=== PATIENT | female | born 1940 | race Asian ===

== ENCOUNTER 2019-04-06 11:10 | Inpatient (IN) | payer OTHER, MEDICAID ==
[~2019-04-06] VITALS: Ht 157.5 cm; Wt 52.2 kg
[~2019-04-06 11:10] MED LIST: ALEN70TA3 PO; AMLO2.5T2 PO; ASA81 PO; CALC-1036 PO; CARB-61 PO; CLOP75TA2 PO; DOCU-144 PO; DONE10TA44 PO; FERR-57 PO; LEVO100T9 PO; LIP10 PO; LORA10TA7 PO; MULT PO; TEMA15CA5 PO
[2019-04-06 11:19] VITALS: BP_SYST 163
--- NOTE | 2019-04-06 11:27 | NUR ---
Patient to ER bed 05 to gown for evaluation. Side rails up.
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
--- NOTE | 2019-04-06 11:40 | NUR ---
ER Dr. Palacios at bedside examining patient.
--- NOTE | 2019-04-06 13:00 | NUR ---
Patient sitting up in bed eating, no signs or symptoms of acute distress noted.
[2019-04-06] MEDS ORDERED: LORazepam 2 MG/ML VIAL IM ONE (13:45)
[2019-04-06 14:33] LABS: BASOPHILS % (AUTO) 0.8 % (0.0-2.0); EOSINOPHILS # (AUTO) 0.1 K/uL (0.0-0.4); EOSINOPHILS % (AUTO) 2.2 % (0.0-4.0); HEMATOCRIT 31.7 % (36-48); HEMOGLOBIN 10.6 g/dL (12.0-16.0); LYMPHOCYTES # (AUTO) 1.1 K/uL (1.0-5.5); LYMPHOCYTES % (AUTO) 27.4 % (20.5-51.5); MEAN CORPUSCULAR HEMOGLOBIN 31 pg (27-31); MEAN CORPUSCULAR HGB CONC 34 % (32-36); MEAN CORPUSCULAR VOLUME 92 fL (79.0-98.0); MONOCYTES # (AUTO) 0.2 K/uL (0.0-1.0); MONOCYTES % (AUTO) 5.6 % (1.7-9.3); NEUTROPHILS # (AUTO) 2.6 K/uL (1.8-7.7); PLATELET COUNT (AUTO) 138 K/uL (130-430); RED BLOOD CELL COUNT(AUTO) 3.44 MIL/uL (4.2-6.2); RED CELL DISTRIBUTION WIDTH 13.9 % (9.0-15.0)
[2019-04-06 14:49] LABS: ANION GAP 11 (5-15); CALCIUM 8.5 mg/dL (8.4-11.0); CHLORIDE 105 mmol/L (98-107); CREATININE 2.02 mg/dL (0.55-1.30); GLUCOSE 98 mg/dL (70-99); POTASSIUM 4.2 mmol/L (3.5-5.1); SODIUM SERUM 139 mmol/L (136-145); UREA NITROGEN, BLOOD 34 mg/dL (8-21)
[2019-04-06 14:56] LABS: ALANINE AMINOTRANSFERASE 19 U/L (12-78); ASPARTATE AMINOTRANSFERASE 35 U/L (10-37); TOTAL BILIRUBIN 0.4 mg/dL (0.0-1.0)
--- NOTE | 2019-04-06 15:30 | NUR ---
Patient cleaned, turned, and repositioned. Patient denies any pain. No signs or symptoms of acute distress noted.
--- NOTE | 2019-04-06 15:59 | NUR ---
Patient will be admitted to care of Dr. Case. Will be admitted to telemetry unit. Belongings list completed. Complete and up to date summary report printed. SBAR report to be given at bedside with opportunity for questions.
--- NOTE | 2019-04-06 16:00 | NUR ---
Unable to obtain medication reconciliation due to patient condition.
[2019-04-06] MEDS ORDERED: HALOPERIDOL LACTATE 5 MG/ML VIAL IM PRN (17:15)
[2019-04-06] MEDS ORDERED: ASPIRIN 81 MG TABLET(ECOTRIN) PO ONE (17:15)
[2019-04-06] MEDS ORDERED: ENOXAPARIN SODIUM 30 MG/0.3 ML SYRINGE SUBCUT ONE (17:15)
[2019-04-06] MEDS ORDERED: ATORVASTATIN 10 MG TABLET PO ONE (17:30)
[2019-04-06] MEDS ORDERED: CLOPIDOGREL BISULFATE 75 MG TABLET PO ONE (17:30)
[2019-04-06] MEDS ORDERED: LORATADINE 10 MG TABLET PO ONE (17:30)
[2019-04-06] MEDS ORDERED: CALCIUM CARBONATE/VITAMIN D3 1 TAB TABLET PO ONE (17:30)
[2019-04-06] MEDS ORDERED: CARBIDOPA/LEVODOPA 25/100 MG TABLET PO ONE (17:30)
[2019-04-06] MEDS ORDERED: QUEtiapine FUMARATE 25 MG TABLET PO ONE (17:30)
[2019-04-06] MEDS ORDERED: MULTIVITAMINS TAB 1 TABLET PO ONE (17:30)
[2019-04-06] MEDS ORDERED: amLODIPine BESYLATE 5 MG TABLET PO ONE (17:30)
[2019-04-06] MEDS ORDERED: FERROUS SULFATE 325 MG TABLET.DR PO ONE (17:30)
[2019-04-06] MEDS ORDERED: HALOPERIDOL LACTATE 5 MG/ML VIAL IM ONE (17:30)
--- NOTE | 2019-04-06 19:13 | NUR ---
Endorsement Endorsed bedside report to oncoming RN using SBAR approach for continuation of care.
--- NOTE | 2019-04-06 19:34 | NUR ---
Patient will be admitted to care of Dr. Case. Admitted to Telemetry unit. Will go to room 126 A. Belongings list completed. Complete and up to date summary report printed. SBAR report to be given at bedside with opportunity for questions.
--- NOTE | 2019-04-06 19:34 | NUR ---
Transfer to Telemetry via ACLS protocol. Licensed nurse present. IV present no signs or symptoms of infiltration.
--- NOTE | 2019-04-06 19:40 | NUR ---
ADMIT NOTE Received pt from ER to the floor with a diagnosis of acute coronary syndrome. Admission process initiated. patient oriented to pain management, safety and call light-pt is confused.
--- NOTE | 2019-04-06 19:45 | NUR ---
RN NOTE PATIENT IS RESTING IN BED, AWAKE, A&OX1 TO NAME, REORIENTED PATIENT TO PERSON, PLACE, TIME, AND EVENT, PATIENT ARRIVED FROM THE ED WITHOUT AN IV LINE IN PLACE, WILL INSERT ONE, NO COMPLAINTS OF PAIN AT THIS TIME, EVEN AND UNLABORED BREATHING ON ROOM AIR, SAFETY AND FALL PRECAUTIONS IN PLACE, BED LOCKED AND IN LOWEST POSITION, BED ALARM ON, THREE SIDE RAILS UP, CALL LIGHT WITH PATIENT, WILL CONTINUE PLAN OF CARE.
[2019-04-06 19:58] VITALS: BP_SYST 159
[2019-04-06 20:00] VITALS: BP_SYST 159
[2019-04-06] MEDS: QUEtiapine FUMARATE 25 MG TABLET PO SCH (20:08)
[2019-04-06] MEDS: CARBIDOPA/LEVODOPA 25/100 MG TABLET PO SCH (20:08)
[2019-04-06] MEDS: DOCUSATE SODIUM 100 MG CAPSULE PO SCH (20:08)
[2019-04-06] MEDS: TEMAZEPAM 15 MG CAPSULE PO SCH (20:08)
[2019-04-06] MEDS: DONEPEZIL HCL 5 MG TABLET (ARICEPT) PO SCH (20:09)
--- NOTE | 2019-04-06 21:10 | NUR ---
IV insertion refused: Patient is still without an IV site. Explained to patient purpose of having an IV site, patient replied "later". This RN asked when would be a good to come back, patient replied "in 1 week". Will continue to reinforce education regarding IV site and attempt insertion later during this shift.
--- NOTE | 2019-04-06 22:50 | NUR ---
Spoke with Katiana at [facility] ) and she stated Belen who can give Influenza information comes in the morning only. RN to follow up tomorrow AM.
--- NOTE | 2019-04-06 23:50 | NUR ---
IV insertion refused: Woke patient up from sleep, patient is drowsy from medications administered earlier. Educated patient again regarding IV insertion and asked patient if it was okay to insert and IV site, patient stated "No" and fell back asleep. Will attempt reinsertion again later during this shift.
[2019-04-07 00:05] VITALS: BP_SYST 126
--- NOTE | 2019-04-07 02:15 | NUR ---
RN ROUNDS PATIENT RESTING IN BED, EYES CLOSED, TOLERATING ROOM AIR, NO SIGNS OF ACUTE DISTRESS, NO IV IN PLACE AT THIS TIME WILL TRY TO INSERT A LINE, SAFETY AND FALL PRECAUTIONS IN PLACE, CALL LIGHT WITH PATIENT WILL CONTINUE TO MONITOR.
--- NOTE | 2019-04-07 02:35 | NUR ---
Consultation Paged Reason for Consultation: NSTEMI Was consult called: Y Person who was notified: Angelica Consulting Physician: Moose Liu Building Engineer Ordering Physician: Dr. Case
--- NOTE | 2019-04-07 02:38 | NUR ---
Consultation Paged Reason for Consultation: Psychosis Was consult called: Y Person who was notified: Angelica Consulting Physician: Dr. Escamilla Community Health Planning Director Ordering Physician: Dr. Case
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
--- NOTE | 2019-04-07 03:40 | NUR ---
ASSISTED WITH BEDPAN ASSISTED PATIENT WITH BEDPAN, PATIENT VOIDED YELLOW URINE, ASSISTED WITH DOUGLAS CARE, PATIENT IS DRY AND CLEAN, PATIENT WAS ABLE TO ASSIST, CALL LIGHT WITH PATIENT, WILL CONTINUE TO MONITOR.
--- NOTE | 2019-04-07 03:54 | NUR ---
IV insertion refused: Patient is awake. This RN provided education regarding use for IV site, asked patient if an IV site can be inserted at this time, patient replied "Never, in other words, negative". Will continue to educate patient and attempt re-insertion at a later time.
[2019-04-07 04:53] LABS: BILIRUBIN,URINE NEGATIVE (NEGATIVE); BLOOD, URINE NEGATIVE (NEGATIVE); CLARITY/URINE CLEAR (CLEAR); COLOR,URINE YELLOW (YELLOW); GLUCOSE,URINE NEGATIVE (NEGATIVE); KETONES,URINE NEGATIVE (NEGATIVE); LEUKOCYTE ESTERASE ,URINE 1+ (NEGATIVE); NITRITE, URINE NEGATIVE (NEGATIVE); PROTEIN URINE 2+ (NEGATIVE); UROBILINOGEN,URINE 0.2 (0.2-1.0)
[2019-04-07 05:15] LABS: BACTERIA,URINE FEW /HPF (None Seen); RBC,URINE 0-3 /HPF (0-3)
--- NOTE | 2019-04-07 06:00 | NUR ---
IV PLACEMENT: # 22 gauge angiocath placed to right forearm by Praneeth Armenta RN. Use of asceptic technique. Opsite placed over site. Blood return noted. No evidence of infiltration noted. This RN present at bedside to provide reassurance and redirection. Patient tolerated well.
[2019-04-07 06:55] LABS: ALANINE AMINOTRANSFERASE 15 U/L (12-78); ALBUMIN 3.2 g/dL (3.4-4.8); ASPARTATE AMINOTRANSFERASE 27 U/L (10-37); CALCIUM 7.8 mg/dL (8.4-11.0); CHLORIDE 108 mmol/L (98-107); CREATININE 1.98 mg/dL (0.55-1.30); GLUCOSE 88 mg/dL (70-99); PHOSPHORUS 3.9 mg/dL (2.7-4.5); POTASSIUM 3.6 mmol/L (3.5-5.1); SODIUM SERUM 140 mmol/L (136-145); THYROID STIMULATING HORMONE 8.46 uIu/mL (0.36-3.74); TOTAL BILIRUBIN 0.4 mg/dL (0.0-1.0); UREA NITROGEN, BLOOD 31 mg/dL (8-21)
[2019-04-07] MEDS ORDERED: LEVOTHYROXINE SODIUM 0.1 MG TABLET PO SCH (07:00)
[2019-04-07 07:04] LABS: ANION GAP 9 (5-15)
[2019-04-07 07:19] LABS: BASOPHILS % (AUTO) 0.6 % (0.0-2.0); EOSINOPHILS # (AUTO) 0.2 K/uL (0.0-0.4); EOSINOPHILS % (AUTO) 4.9 % (0.0-4.0); HEMATOCRIT 28.3 % (36-48); HEMOGLOBIN 9.6 g/dL (12.0-16.0); LYMPHOCYTES % (AUTO) 28.2 % (20.5-51.5); MEAN CORPUSCULAR HEMOGLOBIN 31 pg (27-31); MEAN CORPUSCULAR HGB CONC 34 % (32-36); MEAN CORPUSCULAR VOLUME 92 fL (79.0-98.0); MONOCYTES # (AUTO) 0.3 K/uL (0.0-1.0); MONOCYTES % (AUTO) 7.2 % (1.7-9.3); NEUTROPHILS # (AUTO) 2.1 K/uL (1.8-7.7); NEUTROPHILS % (AUTO) 59.1 % (40.0-70.0); PLATELET COUNT (AUTO) 143 K/uL (130-430); RED BLOOD CELL COUNT(AUTO) 3.09 MIL/uL (4.2-6.2); RED CELL DISTRIBUTION WIDTH 14.1 % (9.0-15.0); WHITE BLOOD COUNT (AUTO) 3.5 K/uL (4.8-10.8)
--- NOTE | 2019-04-07 07:20 | NUR ---
RN NOTE PATIENT IS RESTING IN BED, AWAKE, IV IN RIGHT FOREARM 22G, PATENT/BENIGN, NO COMPLAINTS OF PAIN AT THIS TIME, EVEN AND UNLABORED BREATHING ON ROOM AIR, SAFETY AND FALL PRECAUTIONS IN PLACE, BED LOCKED AND IN LOWEST POSITION, BED ALARM ON, THREE SIDE RAILS UP, CALL LIGHT WITH PATIENT, WILL ENDORSE CARE TO DAYSHIFT RN.
--- NOTE | 2019-04-07 07:45 | NUR ---
Mobility Awake/ alert oriented x 3 , denies any chest pain ,up in the bed with assist to bathroom slow but tolerates well used FWW generalized weakness , had a bowel movement perineal care given , discussed safety , plan of care needs follow up , safety/fall precaution initiated.
[2019-04-07 07:56] VITALS: BP_SYST 157
--- NOTE | 2019-04-07 08:29 | NUR ---
Refused to take medication Patient refused for medication even after explaining the importance of being compliant of taking medication, risk verbalized understanding still refused.
[2019-04-07] MEDS: ENOXAPARIN SODIUM 30 MG/0.3 ML SYRINGE SUBCUT SCH (09:00)
[2019-04-07] MEDS: CALCIUM CARBONATE/VITAMIN D3 1 TAB TABLET PO SCH (10:33)
[2019-04-07] MEDS: ATORVASTATIN 10 MG TABLET PO SCH (10:33)
[2019-04-07] MEDS: FERROUS SULFATE 325 MG TABLET.DR PO SCH (10:33)
[2019-04-07] MEDS: LORATADINE 10 MG TABLET PO SCH (10:34)
[2019-04-07] MEDS: MULTIVITAMINS TAB 1 TABLET PO SCH (10:34)
[2019-04-07] MEDS: CARBIDOPA/LEVODOPA 25/100 MG TABLET PO SCH ×2 (10:34→20:33)
[2019-04-07] MEDS: DOCUSATE SODIUM 100 MG CAPSULE PO SCH ×2 (10:34→20:33)
[2019-04-07] MEDS: ASPIRIN 81 MG TAB.CHEW PO SCH (10:35)
[2019-04-07] MEDS: QUEtiapine FUMARATE 25 MG TABLET PO SCH ×2 (10:35→20:33)
[2019-04-07] MEDS: amLODIPine BESYLATE 5 MG TABLET PO SCH (10:35)
[2019-04-07] MEDS: CLOPIDOGREL BISULFATE 75 MG TABLET PO SCH (10:35)
--- NOTE | 2019-04-07 10:35 | NUR ---
Nutrition Update José Manuel Scale 17 noted. Pt admitted for acute coronary syndrome. Diet: mechanical soft, cardiac BMI: 21 kg/m2 RD to follow per nutrition care standards.
[2019-04-07 12:16] VITALS: BP_SYST 144
--- NOTE | 2019-04-07 12:29 | NUR ---
PATIENT RESTING: Patient resting quietly. No acute distress noted. Vital signs within normal range.
--- NOTE | 2019-04-07 14:40 | NUR ---
Social Service/Discharge Planning: Pt has order for geropsych eval/transfer if accepted. CHILD WELFARE WORKER has reviewed pt's chart; pt has pending psychiatric consultation; pt has not yet been seen by psychiatrist. Pt is not on a 5150 and pt is confused. CHILD WELFARE WORKER will remain available and will assist with geropsych should pt be placed on a 5150 or be able to voluntarily sign for her admission to a geropsych.
--- NOTE | 2019-04-07 15:00 | NUR ---
Ambulate to hallway with standby assist steady gait episode of confusion but cooperative, denies any SOB nor chest pain.
[2019-04-07 16:30] VITALS: BP_SYST 120
--- NOTE | 2019-04-07 17:29 | NUR ---
Patient awake/alert oriented to herself cooperative on/off ambulate inside the room with steady gait.
[2019-04-07 20:00] VITALS: BP_SYST 149
[2019-04-07] MEDS: DONEPEZIL HCL 5 MG TABLET (ARICEPT) PO SCH (20:33)
[2019-04-07] MEDS: TEMAZEPAM 15 MG CAPSULE PO SCH (20:33)
[2019-04-07 23:54] VITALS: BP_SYST 131
--- NOTE | 2019-04-08 08:00 | NUR ---
Patient in bed refused to take her vitals sign, and said shes not ready yet ,. denies any chest pain, telemetry NSR, safety/fall precaution initiated, will follow up.
[2019-04-08] MEDS: ENOXAPARIN SODIUM 30 MG/0.3 ML SYRINGE SUBCUT SCH (09:00)
--- NOTE | 2019-04-08 09:00 | NUR ---
Patient out of bed sitting in the chair having breakfast, needs attended.
[2019-04-08 09:52] VITALS: BP_SYST 162
[2019-04-08] MEDS: ASPIRIN 81 MG TAB.CHEW PO SCH (09:53)
[2019-04-08] MEDS: CALCIUM CARBONATE/VITAMIN D3 1 TAB TABLET PO SCH (09:53)
[2019-04-08] MEDS: MULTIVITAMINS TAB 1 TABLET PO SCH (09:53)
[2019-04-08] MEDS: CARBIDOPA/LEVODOPA 25/100 MG TABLET PO SCH ×2 (09:53→21:35)
[2019-04-08] MEDS: DOCUSATE SODIUM 100 MG CAPSULE PO SCH ×2 (09:53→10:02)
[2019-04-08] MEDS: LEVOTHYROXINE SODIUM 0.125 MG TABLET PO SCH (09:53)
[2019-04-08] MEDS: CLOPIDOGREL BISULFATE 75 MG TABLET PO SCH (09:53)
[2019-04-08] MEDS: ATORVASTATIN 10 MG TABLET PO SCH (09:53)
[2019-04-08] MEDS: LORATADINE 10 MG TABLET PO SCH (09:53)
[2019-04-08] MEDS: QUEtiapine FUMARATE 25 MG TABLET PO SCH ×2 (09:53→21:35)
[2019-04-08] MEDS: amLODIPine BESYLATE 5 MG TABLET PO SCH (09:54)
--- NOTE | 2019-04-08 10:00 | NUR ---
Patient is calm and cooperative vitals sign taken /recorded all due meds given, refused for Lovenox injection even after explaining the indication,Dr. Walker and Dr. Case aware patient refusing for Lovenox, since yesterday.
[2019-04-08] MEDS: FERROUS SULFATE 325 MG TABLET.DR PO SCH (10:01)
[2019-04-08 12:00] VITALS: BP_SYST 126
--- NOTE | 2019-04-08 12:45 | NUR ---
Patient denies any chest pain , needs attended.
[2019-04-08] MEDS ORDERED: LEVOTHYROXINE SODIUM 0.1 MG VIAL IVP ONE (14:15)
[2019-04-08 16:23] VITALS: BP_SYST 125
--- NOTE | 2019-04-08 16:25 | NUR ---
Patient awake/alert cooperative denies any discomfort, ambulate inside the room with steady gait.
--- NOTE | 2019-04-08 17:09 | NUR ---
Patient refusing for blood draw for cardiac enzyme.
--- NOTE | 2019-04-08 19:20 | NUR ---
OPENING NOTE RECEIVED CARE OF PT AND SBAR REPORT. PATIENT IS RESTING IN BED, AWAKE, A&OX2 TO NAME AND PLACE, REORIENTED PATIENT TO PERSON, PLACE, TIME, AND EVENT. IV IS SALINE LOCKED, NO SIGN OF INFILTRATION AT IV SITE. BREATHING IS EVEN AND UNLABORED ON ROOM AIR, NO SOB NOTED. SAFETY AND FALL PRECAUTIONS IN PLACE, BED LOCKED AND IN LOWEST POSITION, BED ALARM ON, THREE SIDE RAILS UP, CALL LIGHT WITH PATIENT, WILL CONTINUE PLAN OF CARE.
[2019-04-08 20:00] VITALS: BP_SYST 134
[2019-04-08] MEDS: TEMAZEPAM 15 MG CAPSULE PO SCH (21:31)
[2019-04-08] MEDS: DONEPEZIL HCL 5 MG TABLET (ARICEPT) PO SCH (21:34)
--- NOTE | 2019-04-08 21:35 | NUR ---
SCHEDULED MEDICATIONS PT AGREED TO TAKE NIGHT MEDICATIONS AFTER INITIALLY REFUSING. MEDICATIONS EXPLAINED TO PT, PT CONFUSED AND DID NOT VERBALIZE UNDERSTANDING. PT WALKING AROUND HER ROOM WITH A STEADY GAIT. NO S/S OF DISTRESS. WILL MONITOR.
--- NOTE | 2019-04-08 22:30 | NUR ---
HYGIENE PT ASSISTED WITH PARTIAL BED BATH AND CHANGED INTO CLEAN GOWN BY ROMMEL WHITLEY. SAFETY PRECAUTIONS MAINTAINED. WILL MONITOR.
--- NOTE | 2019-04-08 23:25 | NUR ---
RN NOTE: PT ASSISTED BY PRIMARY RN TO REPOSITION HERSELF IN BED. PT PROVIDED WITH WARM BLANKETS PER REQUEST. SAFETY AND FALL PRECAUTIONS ARE IN PLACE. WILL MONITOR.
--- NOTE | 2019-04-09 01:40 | NUR ---
SLEEPING PT RESTING IN BED WITH EYES CLOSED. VISIBLE SYMMETRICAL RISE AND FALL OF CHEST TO ROOM AIR. SKIN IS WARM AND DRY TO TOUCH. NO S/S OF PAIN OR DISCOMFORT, NO FACIAL GRIMACE NOTED. SAFETY PRECAUTIONS ARE IN PLACE. WILL MONITOR.
--- NOTE | 2019-04-09 06:39 | NUR ---
REFUSING SYNTHROID PT REFUSING SYNTHROID AT THIS TIME, STATING, "I DON'T WANT IT NOW, I REFUSE." PT EDUCATED REGARDING IMPORTANCE OF MEDICATION COMPLIANCE, PT CONTINUED TO REFUSE STATING, "MAYBE LATER". WILL ENDORSE TO DAY SHIFT RN.
--- NOTE | 2019-04-09 06:50 | NUR ---
CLOSING NOTE PATIENT IS RESTING IN BED. NO SIGN OF PAIN AT THIS TIME. IV IS SALINE LOCKED, NO SIGN OF INFILTRATION AT IV SITE. BREATHING IS EVEN AND UNLABORED ON ROOM AIR, NO SOB NOTED. SAFETY AND FALL PRECAUTIONS IN PLACE. WILL ENDORSE CARE TO DAY SHIFT RN, AND ENDORSE FOR DAY SHIFT TO ATTEMPT TO ADMINISTER THE SYNTHROID MEDICATION THIS AM.
[2019-04-09] MEDS ORDERED: LEVOTHYROXINE SODIUM 0.025 MG TABLET PO SCH (07:00)
--- NOTE | 2019-04-09 07:45 | NUR ---
Opening note patient resting in bed a/ox1, reoriented to time, place and event, she verbalized understanding, patient refused vital signs, she allowed for assessment, IV line is patent no s/s of infiltration, educated the patient rural mail contractor light system, she verbalizes understanding, continuing to monitor, bed in lowest position, two side rails up, call light within reach, fall and aspiration precautions in place.
[2019-04-09] MEDS: QUEtiapine FUMARATE 25 MG TABLET PO SCH ×2 (09:00→21:00)
[2019-04-09] MEDS: ENOXAPARIN SODIUM 30 MG/0.3 ML SYRINGE SUBCUT SCH (09:00)
[2019-04-09] MEDS: LORATADINE 10 MG TABLET PO SCH (09:00)
[2019-04-09] MEDS: CALCIUM CARBONATE/VITAMIN D3 1 TAB TABLET PO SCH (09:00)
[2019-04-09] MEDS: ATORVASTATIN 10 MG TABLET PO SCH (09:00)
[2019-04-09] MEDS: amLODIPine BESYLATE 5 MG TABLET PO SCH (09:00)
[2019-04-09] MEDS: CARBIDOPA/LEVODOPA 25/100 MG TABLET PO SCH ×2 (09:00→21:00)
[2019-04-09] MEDS: ASPIRIN 81 MG TAB.CHEW PO SCH (09:00)
[2019-04-09] MEDS: CLOPIDOGREL BISULFATE 75 MG TABLET PO SCH (09:00)
[2019-04-09] MEDS: DOCUSATE SODIUM 100 MG CAPSULE PO SCH ×2 (09:00→21:00)
[2019-04-09] MEDS: FERROUS SULFATE 325 MG TABLET.DR PO SCH (09:00)
[2019-04-09] MEDS: MULTIVITAMINS TAB 1 TABLET PO SCH (09:00)
--- NOTE | 2019-04-09 09:45 | NUR ---
Refusing Care patient refusing medications at this time, educated her on need for medications uses and benefits, patient still refuses, patient refuses vital signs to be taken, continuing to monitor, patient is ambulating in the hallway, steady gait.
[2019-04-09] MEDS: LEVOTHYROXINE SODIUM 0.125 MG TABLET PO SCH (09:47)
--- NOTE | 2019-04-09 10:34 | NUR ---
Social Service/Discharge Planning: Pt has order for geropsych transfer if accepted. SPANISH TUTOR has reviewed pt's chart; pt has pending psychiatric consultation; pt has not yet been seen by psychiatrist. Pt is not on a 5150 and pt is confused. SPANISH TUTOR will remain available and will assist with geropsych should pt be placed on a 5150 or be able to voluntarily sign for her admission to a geropsych. Phoned threat monitoring analyst Diane and asked her to follow up on the order for psych consult again.
--- NOTE | 2019-04-09 12:15 | NUR ---
Rounds patient sitting in chair at bedside, eating lunch, aspiration precautions in place, call light within reach, continuing to monitor the patient, fall precautions in place, bed in lowest position, two side rails up, bed in locked position.
--- NOTE | 2019-04-09 14:25 | NUR ---
RN rounds patient ambulating in the hallway, denies pain, patient has steady gait, continuing to monitor her.
--- NOTE | 2019-04-09 16:23 | NUR ---
RN rounds patient resting in bed, awake, denies pain, no needs at this time, continuing to monitor her, bed in lowest position, two side rails up, call light within reach, fall and aspiration precautions in place.
--- NOTE | 2019-04-09 18:29 | NUR ---
Closing note patient resting in chair at bedside, eating dinner, aspiration precautions in place, all needs met, will endorse report to NOC shift nurse, bed in lowest position, bed locked, call light within reach of patient.
--- NOTE | 2019-04-09 18:46 | NUR ---
FOLLOW UP CONSULT
[2019-04-09 20:00] VITALS: BP_SYST 126
--- NOTE | 2019-04-09 20:00 | NUR ---
OPENING NOTE: RECIEVED REPORT @ START OF SHIFT,ALERT TO NAME ONLY, CONFUSED,RESPIRATIONS EVEN AND UNLABORED, ROOM AIR, PATIENT NON COMPLIANR, WALKS ABOUT THE ROOM AND HALLS AT WILL, REFUSED PO MEDICATIONS,, HAS VERY SHORT ATTENTION SPAN, SKIN INTACT,BRP,VOIDING CLEAR YELLOW URINE, KEPT CLEAN AND DRY, RFA S/L PATENT /INTACT, TOLERATED EVENING MEAL WITHOUT ANY DIFFICULITIES, LIKES TO SIT @ BEDSIDE, PO FLUIDS OFFERRED OFTEN, BED IN LOW POSITION, CALL LIGHT WITHIN REACH, WILL CONTINUE TO MONITOR.
[2019-04-09] MEDS: TEMAZEPAM 15 MG CAPSULE PO SCH (21:00)
[2019-04-09] MEDS: DONEPEZIL HCL 5 MG TABLET (ARICEPT) PO SCH (21:00)
--- NOTE | 2019-04-10 | NUR ---
RESTING QUIETLY IN BED WITH EYES CLOSED,NO S/S OF DISTRESS NOTED
[2019-04-10 01:34] VITALS: BP_SYST 159
--- NOTE | 2019-04-10 04:00 | NUR ---
NO CHANGES NOTED, CONTINUES TO REST QUIETLY IN BED WITH BOTH EYES CLOSED
--- NOTE | 2019-04-10 08:00 | NUR ---
Opening note patient resting in bed a/ox1, reoriented to time, place and event, she verbalized understanding, patient refused vital signs, she allowed for assessment, IV line is patent no s/s of infiltration, educated the patient television host light system, she verbalizes understanding, continuing to monitor, bed in lowest position, two side rails up, call light within reach, fall and aspiration precautions in place.
[2019-04-10] MEDS: LORATADINE 10 MG TABLET PO SCH (09:00)
[2019-04-10] MEDS: DOCUSATE SODIUM 100 MG CAPSULE PO SCH (09:00)
[2019-04-10] MEDS: QUEtiapine FUMARATE 25 MG TABLET PO SCH (09:00)
[2019-04-10] MEDS: amLODIPine BESYLATE 5 MG TABLET PO SCH (09:00)
[2019-04-10] MEDS: CARBIDOPA/LEVODOPA 25/100 MG TABLET PO SCH (09:00)
[2019-04-10] MEDS: ENOXAPARIN SODIUM 30 MG/0.3 ML SYRINGE SUBCUT SCH (09:00)
[2019-04-10] MEDS: ATORVASTATIN 10 MG TABLET PO SCH (09:00)
[2019-04-10] MEDS: MULTIVITAMINS TAB 1 TABLET PO SCH (09:00)
[2019-04-10] MEDS: FERROUS SULFATE 325 MG TABLET.DR PO SCH (09:00)
[2019-04-10] MEDS: CALCIUM CARBONATE/VITAMIN D3 1 TAB TABLET PO SCH (09:00)
[2019-04-10] MEDS: CLOPIDOGREL BISULFATE 75 MG TABLET PO SCH (09:00)
[2019-04-10] MEDS: ASPIRIN 81 MG TAB.CHEW PO SCH (09:00)
[2019-04-10] MEDS: LEVOTHYROXINE SODIUM 0.125 MG TABLET PO SCH (09:21)
--- NOTE | 2019-04-10 09:25 | NUR ---
Refusing Care patient refusing medications at this time, educated her on need for medications uses and benefits, patient still refuses, patient refuses vital signs to be taken, continuing to monitor, patient sitting in chair at bedside, aspiration and fall precautions in place.
--- NOTE | 2019-04-10 10:19 | NUR ---
RN rounds patient resting in bed, eyes closed, breathing is even and unlabored, no signs of distress, continuing to monitor, bed in lowest position, two side rails up, call light within reach, fall and aspiration precautions in place.
--- NOTE | 2019-04-10 11:52 | NUR ---
Social Service/Discharge Planning: Pt again has an order for DC to geropsyc; pt has not been seen by psychiatrist. BIOMECHANICAL ENGINEER spoke wit pt pt's nurse and encouraged pt's nurse to use the tele-psych machine to conduct psychiatric evaluation for pt. BIOMECHANICAL ENGINEER spoke with physician and let physician know that psychiatric evaluation has not yet been completed and that BIOMECHANICAL ENGINEER suggested to nurse to use tele-psych machine. Physician is in agreement that tele-psych should be used to complete evaluation of pt. BIOMECHANICAL ENGINEER also suggested that if pt is cleared by tele-psych that pt should DC back to [facility]; physician also aware. BIOMECHANICAL ENGINEER will follow up as needed.
--- NOTE | 2019-04-10 12:18 | NUR ---
RN rounds patient resting in bed, awake, denies pain, no needs at this time, continuing to monitor her, bed in lowest position, two side rails up, call light within reach, fall and aspiration precautions in place, she refused for vital signs to be taken at this time.
[2019-04-10] MEDS ORDERED: SER25 PO (13:19)
--- NOTE | 2019-04-10 13:46 | NUR ---
Discharge Planning: HELMET HAT PUNCHER placed call to [facility]; pt is from the memory care unit. HELMET HAT PUNCHER spoke with [facility] who stated that pt was not on service with home health; [facility] prefers for patients to have home health care with [facility] as they have many patients on service with them. AKBAR has faxed pt's DC with HH order to [facility] ([phone] [phone]). HELMET HAT PUNCHER will follow up to see if they can accept the pt.
--- NOTE | 2019-04-10 14:23 | NUR ---
RN rounds patient resting in chair at bedside, denies pain, will follow up with discharge, continuing to monitor, bed in lowest position, two side rails up, call light within reach, fall and aspiration precautions in place.
--- NOTE | 2019-04-10 14:49 | NUR ---
Discharge Planning: DCP spoke to Frederick at [facility] ([phone] [phone]) patient accepted
--- NOTE | 2019-04-10 15:27 | NUR ---
D/C Patient Ambulatory with steady gait for discharge to home. Patient in stable condition, ID band removed. IV catheter removed, intact and dressing applied, no active bleeding. Rx of HOME MEDICATIONS given. Patient educated on pain management. All belongings sent with patient.
[2019-04-13] MEDS ORDERED: ALENDRONATE SODIUM 70 MG TABLET (FOSAMAX) PO SCH (06:00)
== END 2019-04-10 17:35 | disposition home health service (06) | DRG 682 ==
LOC: SED 11:10 → STU 15:54 → SMU 04-09 00:58
PROVIDERS: ADMIT Internal Medicine; ATTEND Internal Medicine
DX: I12.9 Hypertensive chronic kidney disease with stage 1 through stage 4 chronic kidney disease, or unspecified chronic kidney disease (principal); N17.0 Acute kidney failure with tubular necrosis; I24.9 Acute ischemic heart disease, unspecified; F23 Brief psychotic disorder; Q61.3 Polycystic kidney, unspecified; F03.91 Unspecified dementia, unspecified severity, with behavioral disturbance; N18.4 Chronic kidney disease, stage 4 (severe); I25.10 Atherosclerotic heart disease of native coronary artery without angina pectoris; E78.5 Hyperlipidemia, unspecified; D63.8 Anemia in other chronic diseases classified elsewhere; F22 Delusional disorders; G89.4 Chronic pain syndrome; M81.0 Age-related osteoporosis without current pathological fracture; G20 Parkinson's disease; Z91.041 Radiographic dye allergy status; Z79.82 Long term (current) use of aspirin; Z79.899 Other long term (current) drug therapy; Z98.891 History of uterine scar from previous surgery
CPT/HCPCS: 36415; 71045; 80053; 81000-TC; 84100-TC; 84439; 84443-TC; 84484; 85025; 87086; 93005; 93306; 96372; 99285; G0378; J1630; J1650; J2060

== ENCOUNTER 2019-04-17 13:36 | Inpatient (IN) | payer OTHER, MEDICAID ==
[~2019-04-17] VITALS: Ht 157.5 cm; Wt 59.0 kg
[2019-04-17 13:36] VITALS: BP_SYST 126
[~2019-04-17 13:36] MED LIST changes: +SER25 PO
--- NOTE | 2019-04-17 13:36 | NUR ---
BROUGHT IN BY [facility], PLACED IN BED #7 AND TRIAGED. REPORT GIVEN TO FLORENTINO
--- NOTE | 2019-04-17 13:38 | NUR ---
DR MCCALLUM AT BEDSIDE FOR EVALUATION
[2019-04-17] MEDS ORDERED: ONDANSETRON HCL 4 MG/2 ML VIAL IVP ONE (13:45)
[2019-04-17] MEDS ORDERED: MORPHINE 2 MG/ML INJ. SYRINGE IVP ONE (13:45)
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
--- NOTE | 2019-04-17 14:10 | NUR ---
# 20 gauge angiocath placed to right AC. Use of asceptic technique. Opsite placed over site. Blood return noted. Blood for lab drawn from site. Flushed with 10 cc of normal saline. No evidence of infiltration noted. Patient tolerated well.
--- NOTE | 2019-04-17 14:12 | NUR ---
Medication reconciliation completed with information provided by patient . Any prior medication reconciliation on file was reviewed and corrected.
--- NOTE | 2019-04-17 14:20 | NUR ---
Patient to radiology with staff via [facility].
[2019-04-17 14:23] LABS: BASOPHILS % (AUTO) 0.8 % (0.0-2.0); EOSINOPHILS # (AUTO) 0.2 K/uL (0.0-0.4); EOSINOPHILS % (AUTO) 3.1 % (0.0-4.0); HEMATOCRIT 27.9 % (36-48); HEMOGLOBIN 9.2 g/dL (12.0-16.0); LYMPHOCYTES # (AUTO) 0.9 K/uL (1.0-5.5); LYMPHOCYTES % (AUTO) 15.7 % (20.5-51.5); MEAN CORPUSCULAR HEMOGLOBIN 31 pg (27-31); MEAN CORPUSCULAR HGB CONC 33 % (32-36); MEAN CORPUSCULAR VOLUME 93 fL (79.0-98.0); MONOCYTES # (AUTO) 0.4 K/uL (0.0-1.0); MONOCYTES % (AUTO) 6.8 % (1.7-9.3); NEUTROPHILS # (AUTO) 4.2 K/uL (1.8-7.7); NEUTROPHILS % (AUTO) 73.6 % (40.0-70.0); PLATELET COUNT (AUTO) 185 K/uL (130-430); RED CELL DISTRIBUTION WIDTH 14.8 % (9.0-15.0); WHITE BLOOD COUNT (AUTO) 5.8 K/uL (4.8-10.8)
--- NOTE | 2019-04-17 14:31 | NUR ---
Patient to ER bed 7 from radiology.
[2019-04-17 14:42] LABS: ANION GAP 11 (5-15); CALCIUM 7.9 mg/dL (8.4-11.0); CHLORIDE 99 mmol/L (98-107); CREATININE 1.93 mg/dL (0.55-1.30); GLUCOSE 124 mg/dL (70-99); POTASSIUM 4.6 mmol/L (3.5-5.1); SODIUM SERUM 131 mmol/L (136-145); UREA NITROGEN, BLOOD 47 mg/dL (8-21)
[2019-04-17 14:50] LABS: PROTHROMBIN TIME 10.3 SECS (9.5-12.5)
--- NOTE | 2019-04-17 15:30 | NUR ---
# 16 FR Covington catheter with use of sterile technique. Immediate return of100 cc yellow urine noted. Bedside drainage bag placed below level of bladder. Urine sample collected and sent to lab. Pt tolerated procedure well . Patient unable to toilet self.
--- NOTE | 2019-04-17 16:30 | NUR ---
Patient sleeping in [facility].
--- NOTE | 2019-04-17 17:45 | NUR ---
Patient assisted with dinner, mechanical soft. AA&Ox4
--- NOTE | 2019-04-17 17:51 | NUR ---
CONSULT FOR DR PORTER NOT DONE. COULD NOT REACH HIM SAT ON HOLD FOR 10 MINUTES TWICE [phone]
--- NOTE | 2019-04-17 19:09 | NUR ---
Report to Jeffrey ZARAGOZA
--- NOTE | 2019-04-17 20:15 | NUR ---
Pt resting comfortably. Pt requested and Given Juice.
--- NOTE | 2019-04-17 21:00 | NUR ---
Transfer to [facility]. IV present no sign or symptom of infiltration.
--- NOTE | 2019-04-17 21:03 | NUR ---
ADMIT NOTE Received pt from ER to the floor with a diagnosis of acetabullar fracture. Admission process initiated. patient oriented to pain management, safety and call light-pt is confused.
[2019-04-17 21:15] VITALS: BP_SYST 123
[2019-04-17] MEDS: DONEPEZIL HCL 5 MG TABLET (ARICEPT) PO SCH (22:39)
[2019-04-17] MEDS: CARBIDOPA/LEVODOPA 25/100 MG TABLET PO SCH (22:39)
[2019-04-17] MEDS: DOCUSATE SODIUM 100 MG CAPSULE PO SCH (22:39)
[2019-04-17] MEDS: ENOXAPARIN SODIUM 30 MG/0.3 ML SYRINGE SUBCUT SCH (22:40)
--- NOTE | 2019-04-17 23:00 | NUR ---
ROUNDS Patient in bed, eyes are closed, appears to be asleep. No s/s of acute distress noted. Breathing even and unlabored. HOB slightly raised. Trapeze present at bedside. Covington attached, secured, and draining by gravity. Call light with patient. Bed alarm on. Will continue to monitor.
--- NOTE | 2019-04-18 01:00 | NUR ---
ROUNDS Patient in bed sleeping at this time. No signs of discomfort noted. Chest rise and fall even bilaterally. All needs met at this time. Call light with patient. Bed alarm on. Will continue to monitor.
[2019-04-18 01:54] VITALS: BP_SYST 130
--- NOTE | 2019-04-18 03:00 | NUR ---
ROUNDS Patient in bed sleeping at this time. No s/s of acute distress noted. Breathing even and unlabored. Call light with patient. Bed alarm on. Will continue to monitor.
--- NOTE | 2019-04-18 05:00 | NUR ---
ROUNDS Patient in bed sleeping at this time. No signs of discomfort noted. Chest rise and fall even bilaterally. Call light with patient. Bed alarm on. Will continue to monitor.
[2019-04-18 06:33] LABS: BASOPHILS # (AUTO) 0.1 K/uL (0.0-0.2); BASOPHILS % (AUTO) 0.7 % (0.0-2.0); EOSINOPHILS # (AUTO) 0.2 K/uL (0.0-0.4); EOSINOPHILS % (AUTO) 2.1 % (0.0-4.0); HEMATOCRIT 22.7 % (36-48); HEMOGLOBIN 7.7 g/dL (12.0-16.0); LYMPHOCYTES # (AUTO) 1.2 K/uL (1.0-5.5); LYMPHOCYTES % (AUTO) 15.6 % (20.5-51.5); MEAN CORPUSCULAR HEMOGLOBIN 31 pg (27-31); MEAN CORPUSCULAR HGB CONC 34 % (32-36); MEAN CORPUSCULAR VOLUME 92 fL (79.0-98.0); MONOCYTES # (AUTO) 0.5 K/uL (0.0-1.0); MONOCYTES % (AUTO) 6.5 % (1.7-9.3); NEUTROPHILS # (AUTO) 5.9 K/uL (1.8-7.7); NEUTROPHILS % (AUTO) 75.1 % (40.0-70.0); PLATELET COUNT (AUTO) 180 K/uL (130-430); RED BLOOD CELL COUNT(AUTO) 2.47 MIL/uL (4.2-6.2); RED CELL DISTRIBUTION WIDTH 14.3 % (9.0-15.0); WHITE BLOOD COUNT (AUTO) 7.8 K/uL (4.8-10.8)
--- NOTE | 2019-04-18 06:35 | NUR ---
CLOSING NOTES Patient in bed sleeping comfortably. No s/s of acute distress noted. Breathing is even and unlabored. HOB raised slightly. IV site patent, no signs of infiltration or infection noted. Skin warm and dry to touch. Covington attached, secured, and draining by gravity. Trapeze at bedside. All needs met throughout shift. Fall and safety precautions maintained throughout shift. Will continue to monitor until patient care is endorsed to oncoming dayshift nurse.
--- NOTE | 2019-04-18 06:52 | NUR ---
CONSULTATION PAGED REASON FOR CONSULTATION:LEFT PELVIC BONE FRACTURE WAS CONSULT CALLED?Y PERSON WHO WAS NOTIFIED:CECILIA CONSULTING PHYSICIAN:LOUIE DIAZ (TEDDY ARAYA PELLET POST INSPECTOR) MARINA MANAGER SPECIALTY:ORTHO MARINA MANAGER PHONE NUMBER:[phone] REQUESTING PHYSICIAN:ANIYA GASTON
[2019-04-18 07:02] LABS: ANION GAP 9 (5-15); CALCIUM 7.4 mg/dL (8.4-11.0); CHLORIDE 102 mmol/L (98-107); CREATININE 2.13 mg/dL (0.55-1.30); GLUCOSE 109 mg/dL (70-99); POTASSIUM 4.2 mmol/L (3.5-5.1); SODIUM SERUM 133 mmol/L (136-145); UREA NITROGEN, BLOOD 42 mg/dL (8-21)
--- NOTE | 2019-04-18 07:30 | NUR ---
AM ROUNDS: PATIENT AWAKE DURING ROUNDS. RECEIVED REPORT FROM NIGHT NURSE PRABHAKAR.CALL LIGHT WITH IN REACH. BED LOCKED AT LOWEST POSITION. SAFETY MEASURES RENDERED.CONTINUE TO MONITOR.
[2019-04-18 08:38] LABS: BILIRUBIN,URINE NEGATIVE (NEGATIVE); CLARITY/URINE CLEAR (CLEAR); COLOR,URINE YELLOW (YELLOW); GLUCOSE,URINE NEGATIVE (NEGATIVE); KETONES,URINE NEGATIVE (NEGATIVE); LEUKOCYTE ESTERASE ,URINE TRACE (NEGATIVE); NITRITE, URINE NEGATIVE (NEGATIVE); PROTEIN URINE 2+ (NEGATIVE); UROBILINOGEN,URINE 0.2 (0.2-1.0)
--- NOTE | 2019-04-18 08:43 | NUR ---
Nutrition Update José Manuel Scale 17 noted. Pt admitted for acetabulum fracture. Diet: regular BMI: 23.8 kg/m2 RD to follow per nutrition care standards.
[2019-04-18 08:52] VITALS: BP_SYST 132
[2019-04-18] MEDS: DOCUSATE SODIUM 100 MG CAPSULE PO SCH ×2 (09:00→21:00)
[2019-04-18] MEDS: ASPIRIN 81 MG TAB.CHEW PO SCH (09:00)
[2019-04-18] MEDS: CLOPIDOGREL BISULFATE 75 MG TABLET PO SCH (09:00)
[2019-04-18 09:06] LABS: BLOOD, URINE TRACE (NEGATIVE)
[2019-04-18] MEDS: CALCIUM CARBONATE/VITAMIN D3 1 TAB TABLET PO SCH (09:10)
[2019-04-18] MEDS: ATORVASTATIN 10 MG TABLET PO SCH (09:12)
[2019-04-18] MEDS: CARBIDOPA/LEVODOPA 25/100 MG TABLET PO SCH ×2 (09:12→21:15)
[2019-04-18] MEDS: amLODIPine BESYLATE 5 MG TABLET PO SCH (09:12)
[2019-04-18] MEDS: KCL 20 mEq in D5/0.45NS 1000mL 1,000 ML IV SCH ×2 (09:13→21:16)
--- NOTE | 2019-04-18 09:30 | NUR ---
Rn Rounds: No complained made. Needs attended to.
[2019-04-18 11:22] VITALS: BP_SYST 136
--- NOTE | 2019-04-18 12:00 | NUR ---
Lunch: Patient having lunch. Stable.
[2019-04-18 12:02] LABS: BACTERIA,URINE FEW /HPF (None Seen); FINE GRANULAR CASTS,URINE 0-10 /LPF (None Seen)
[2019-04-18] MEDS: HYDROcodone/ACETAMIN 10-325 MG TAB PO PRN ×2 (14:17→21:16)
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
[2019-04-18 15:38] VITALS: BP_SYST 128
--- NOTE | 2019-04-18 16:00 | NUR ---
Rn Rounds: Patient sleeping during rounds. No distress.
--- NOTE | 2019-04-18 16:27 | NUR ---
Dietitian Recommendations * Recommend continuing regular diet * Encourage increase PO intakes LP, RD Please refer to Nutrition Assessment for details. Addendum: 04/18/19 at [address] Amended: Links added.
--- NOTE | 2019-04-18 18:22 | NUR ---
Closing Notes: Patient sleeping during rounds. Call light with in reach. Bed locked at lowest position. Safety measures rendered.Continue to monitor.
--- NOTE | 2019-04-18 19:15 | NUR ---
OPENING NOTES Late entry due to patient care. Bedside report received from dayshift nurse. Patient received lying in bed, awake, no s/s of acute distress noted. Breathing even and unlabored. IVF infusing well. Covington attached, secured, and draining by gravity. Call light with patient. Bed alarm on. Will continue to monitor.
[2019-04-18 20:00] VITALS: BP_SYST 124
[2019-04-18] MEDS: ENOXAPARIN SODIUM 30 MG/0.3 ML SYRINGE SUBCUT SCH (21:00)
[2019-04-18] MEDS: DONEPEZIL HCL 5 MG TABLET (ARICEPT) PO SCH (21:15)
--- NOTE | 2019-04-18 21:16 | NUR ---
PAIN Patient complained of pain, PRN medication administered. Will continue to monitor and reassess.
--- NOTE | 2019-04-18 23:30 | NUR ---
ROUNDS Patient in bed asleep. No s/s of acute distress noted. Breathing even and unlabored. Bed alarm on. Will continue to monitor.
[2019-04-19] VITALS: BP_SYST 128
--- NOTE | 2019-04-19 02:00 | NUR ---
ROUNDS/PAIN Patient in bed, awake at this time. Patient complains of pain, PRN medication to be administered. Will continue to monitor and reassess.
[2019-04-19] MEDS: HYDROcodone/ACETAMIN 10-325 MG TAB PO PRN ×3 (02:18→21:25)
[2019-04-19] MEDS: LEVOTHYROXINE SODIUM 0.1 MG TABLET PO SCH (06:02)
[2019-04-19 06:38] LABS: ANION GAP 8 (5-15); CALCIUM 7.6 mg/dL (8.4-11.0); CHLORIDE 101 mmol/L (98-107); GLUCOSE 146 mg/dL (70-99); POTASSIUM 4.3 mmol/L (3.5-5.1); SODIUM SERUM 129 mmol/L (136-145); UREA NITROGEN, BLOOD 34 mg/dL (8-21)
--- NOTE | 2019-04-19 06:41 | NUR ---
CLOSING NOTES Patient in bed, sleeping at this time. No s/s of acute distress noted. Breathing even and unlabored. HOB raised, nasal canula attached properly, on 2L of oxygen. IVF infusing well, IV site patent, no signs of infiltration or infection noted. [place] attached, secured, and draining by gravity. All needs met throughout shift. Fall and safety precautions maintained throughout shift. Will continue to monitor until patient care is endorsed to oncoming dayshift nurse.
--- NOTE | 2019-04-19 06:46 | NUR ---
CONSENT Attempted to contact SRINIVASAN Dickey at [phone] multiple times, no answer, went straight to voicemail, could not leave a voicemail because its full. Will endorse to dayshift.
[2019-04-19 06:48] LABS: BASOPHILS % (AUTO) 0.4 % (0.0-2.0); EOSINOPHILS % (AUTO) 0.1 % (0.0-4.0); HEMATOCRIT 24.2 % (36-48); HEMOGLOBIN 8.1 g/dL (12.0-16.0); LYMPHOCYTES # (AUTO) 0.4 K/uL (1.0-5.5); LYMPHOCYTES % (AUTO) 8.6 % (20.5-51.5); MEAN CORPUSCULAR HEMOGLOBIN 31 pg (27-31); MEAN CORPUSCULAR HGB CONC 33 % (32-36); MEAN CORPUSCULAR VOLUME 93 fL (79.0-98.0); MONOCYTES # (AUTO) 0.3 K/uL (0.0-1.0); NEUTROPHILS # (AUTO) 3.9 K/uL (1.8-7.7); NEUTROPHILS % (AUTO) 83.9 % (40.0-70.0); PLATELET COUNT (AUTO) 178 K/uL (130-430); RED BLOOD CELL COUNT(AUTO) 2.62 MIL/uL (4.2-6.2); RED CELL DISTRIBUTION WIDTH 14.3 % (9.0-15.0); WHITE BLOOD COUNT (AUTO) 4.6 K/uL (4.8-10.8)
--- NOTE | 2019-04-19 07:25 | NUR ---
AM ROUNDS: RECEIVED REPORT FROM NIGHT NURSE PRABHAKAR.PATIENT FAST ASLEEP.IVF RUNNING WELL AT RIGHT AC IN PLACE.LEWIS IN SITU. CALL LIGHT WITH IN REACH. BED LOCKED AT LOWEST POSITION. CONDITION GUARDED.
[2019-04-19 08:49] VITALS: BP_SYST 140
[2019-04-19] MEDS: ATORVASTATIN 10 MG TABLET PO SCH (08:59)
[2019-04-19] MEDS: DOCUSATE SODIUM 100 MG CAPSULE PO SCH ×3 (08:59→20:45)
[2019-04-19] MEDS: ASPIRIN 81 MG TAB.CHEW PO SCH (08:59)
[2019-04-19] MEDS: CLOPIDOGREL BISULFATE 75 MG TABLET PO SCH (08:59)
[2019-04-19] MEDS: CALCIUM CARBONATE/VITAMIN D3 1 TAB TABLET PO SCH (08:59)
[2019-04-19] MEDS: CARBIDOPA/LEVODOPA 25/100 MG TABLET PO SCH ×2 (08:59→20:36)
[2019-04-19] MEDS: amLODIPine BESYLATE 5 MG TABLET PO SCH (09:00)
--- NOTE | 2019-04-19 09:00 | NUR ---
RN ROUNDS: RESTING. NO PROBLEM.
[2019-04-19] MEDS: KCL 20 mEq in D5/0.45NS 1000mL 1,000 ML IV SCH (09:08)
[2019-04-19 12:31] VITALS: BP_SYST 139
--- NOTE | 2019-04-19 13:23 | NUR ---
LUNCH: PATIENT HAVING LUNCH. NO NEEDS THIS TIME.
--- NOTE | 2019-04-19 15:00 | NUR ---
RN ROUNDS: PATIENT SLEEPING DURING ROUNDS. NO DISTRESS.
[2019-04-19 16:38] VITALS: BP_SYST 131
--- NOTE | 2019-04-19 17:45 | NUR ---
DINNER: DINNER WAS SET UP FOR THE PATIENT. EATING SLOWLY. NO PROBLEM.
--- NOTE | 2019-04-19 18:34 | NUR ---
CLOSING NOTES: DR BROCK IN THE ROOM. NO ACUTE DISTRESS. LEWIS IN PLACE. CALL LIGHT WITH IN REACH. PRACTICE GUIDELINES MET THROUGH OUT THE SHIFT. CONTINUE TO MONITOR.
--- NOTE | 2019-04-19 19:45 | NUR ---
ROUNDS PATIENT AWAKE, VITALS STABLE, NO PAIN AND DISCOMFORT NOTED. ASSESSMENT DONE AND DOCUMENTED. SEE FLOWSHEET. NEEDS ATTENDED TO. SAFETY AND FALL MEASURES IN PLACED. CALL LIGHT PLACED WITHIN REACH.
[2019-04-19] MEDS: DONEPEZIL HCL 5 MG TABLET (ARICEPT) PO SCH (20:36)
[2019-04-19] MEDS: ENOXAPARIN SODIUM 30 MG/0.3 ML SYRINGE SUBCUT SCH (21:00)
--- NOTE | 2019-04-20 00:13 | NUR ---
PATIENT RESTING: Patient resting quietly. No acute distress noted. Vital signs within normal range.
[2019-04-20 01:56] VITALS: BP_SYST 133
--- NOTE | 2019-04-20 04:16 | NUR ---
PATIENT RESTING: Patient resting quietly. No acute distress noted. Vital signs within normal range.
--- NOTE | 2019-04-20 06:43 | NUR ---
CLOSING NOTES PATIENT AWAKE, VITALS STABLE, NO PAIN AT THIS TIME. ALL NEEDS ATTENDED TO. SAFETY MEASURES MAINTAINED. CALL LIGHT PLACED WITHIN REACH.
[2019-04-20 08:00] VITALS: BP_SYST 135
--- NOTE | 2019-04-20 08:00 | NUR ---
Opening note patient resting in bed, a/ox2, reoriented to place and time, pt denies pain, assessment complete, IV line is patent and infusing well, skin assessment complete, educated the patient detention attendant light system and plan of care, she verbalized understanding, no other needs at this time, bed in lowest position, three side rails up, bed alarm on, bed close to nursing station, call light placed within reach, fall and aspiration precautions in place.
[2019-04-20] MEDS: ASPIRIN 81 MG TAB.CHEW PO SCH (09:29)
[2019-04-20] MEDS: DOCUSATE SODIUM 100 MG CAPSULE PO SCH ×2 (09:29→23:27)
[2019-04-20] MEDS: ATORVASTATIN 10 MG TABLET PO SCH (09:29)
[2019-04-20] MEDS: amLODIPine BESYLATE 5 MG TABLET PO SCH (09:29)
[2019-04-20] MEDS: CARBIDOPA/LEVODOPA 25/100 MG TABLET PO SCH ×2 (09:29→23:27)
[2019-04-20] MEDS: CALCIUM CARBONATE/VITAMIN D3 1 TAB TABLET PO SCH (09:29)
[2019-04-20] MEDS: LEVOTHYROXINE SODIUM 0.1 MG TABLET PO SCH (09:29)
[2019-04-20] MEDS: CLOPIDOGREL BISULFATE 75 MG TABLET PO SCH (09:29)
--- NOTE | 2019-04-20 09:30 | NUR ---
Medication patient resting in bed, awake, denies pain, educated on morning medications uses and potential side effects, she verbalized understanding and tolerated well, no other needs at this time, bed in lowest position, three side rails up, bed alarm on, bed close to nursing station, call light placed within reach, fall and aspiration precautions in place.
[2019-04-20] MEDS: HYDROcodone/ACETAMIN 10-325 MG TAB PO PRN (10:21)
--- NOTE | 2019-04-20 10:22 | NUR ---
Pain patient resting in bed, asking for pain medication for her left hip, educated her on medication uses and potential side effects, she verbalized understanding and tolerated well, continuing to monitor the patient , no other needs at this time, bed in lowest position, three side rails up, bed alarm on, bed close to nursing station, call light placed within reach, fall and aspiration precautions in place. Called pharmacy, IVF fluids need replacing and not available at this time, will follow up as needed.
[2019-04-20] MEDS: KCL 20 mEq in D5/0.45NS 1000mL 1,000 ML IV SCH (10:55)
--- NOTE | 2019-04-20 10:59 | NUR ---
Rounds/IVF patient resting in bed, asking for water, provided with water, aspiration precautions in place, IV fluids hung and infusing well, IV line is patent, patient has no other needs at this time, bed in lowest position, three side rails up, bed alarm on, bed close to nursing station, fall and aspiration precautions in place, call light within reach.
--- NOTE | 2019-04-20 11:00 | NUR ---
DC Planning: CM was unable to contact both POA: brother /Ruben @ [phone], his VM is full and LVM to Cesar/friend # [phone]. The call is to notify pt transfer planning to either [facility] or [facility] for hip surgery. LEEROY s/w Sheree/Vaughn snf asking to assist with calling family/POA. Per Sheree, she spoke with Savita spouse that Cesar is in ICU at [facility] and Ruben does not answer his phone normally. LEEROY and Sheree will try to contact Ruben via his email:
--- NOTE | 2019-04-20 12:16 | NUR ---
Dc Planning: Faxed referral package to [facility]uel[facility], transfer ctr @ [facility] tel#[phone], fax# [phone]-- f/u with Kev: the case is in reviewed, waiting for accepting orthopedic, and the facility is full today. He asked to call back tomorrow. >> Faxed to [facility] transfer ctr fax# [phone], tel [phone]. LEEROY f/u with Valentín: the pt is clinically accepted but will need pt and family's agreement for the transfer and surgery. The orthopedic and hospitalist will accept 2 nurses witness signatures and md documentation that the pt agreed for the procedure. Once there are 1. transfer consent from patient and 2. md document in progress note, and 3. repatriation agreement form. All 3 documents needs faxing to [facility] prior to the transfer. [facility] will give bed out possible tonight once received all mentioned docs above. -- MILA Tenorio made aware. >> Together with MILA Tenorio , LEEROY spoke with pt at bedside about transfer to other for hip surgery. The pt. is aaox2, knows her full name and . She knows her brother's name as well. She is able to ask for help and expressing her needs, ie asking nurse Jona to put on her red slippers because the socks she had on was not warm enough. The pt knows she has hip fracture and in pain but she does not want any surgery. She reasoned that she does not want a "double surgery". One she had in the past, she pointed at her stomach and the hip surgery would be her second one. She stated " it is not necessary , I am almost 80 years old. She stated "I don't care if I can walk again. She knows that she will be in pain and can't get out of bed". MILA Tenorio is to notify dr. Ding for further dcp and instruction.
[2019-04-20 12:41] VITALS: BP_SYST 121
--- NOTE | 2019-04-20 13:39 | NUR ---
RN rounds patient resting in bed, awake, denies pain, finishing lunch, aspiration precautions in place, no other needs at this time, bed in lowest position, three side rails up, bed alarm on, bed close to nursing station, fall precautions also in place.
--- NOTE | 2019-04-20 14:20 | NUR ---
RN rounds/Group Fitness Instructor patient resting in bed, denies pain, spoke with patient at bedside with Group Fitness Instructor Pilo, regarding transfer plans for surgery, patient states," I don't want surgery, it's too scary. I am already almost 80 years old," it was explained to the patient that without potential surgery she would not be able to walk potentially, to this, patient states," I know this," will inform MD, patient has no other needs at this time, bed in lowest position, three side rails up, bed alarm on, bed close to nursing station, fall and aspiration precautions in place.
--- NOTE | 2019-04-20 15:56 | NUR ---
RN rounds patient resting in bed, awake, denies pain, provided patient with juice per her request, she tolerated well, aspiration precautions in place, patient has no other needs at this time, bed in lowest position, three side rails up, bed alarm on, bed close to nursing station, call light placed within patient reach.
[2019-04-20 16:32] VITALS: BP_SYST 126
--- NOTE | 2019-04-20 17:05 | NUR ---
Dr. Ding rounds informed him that patient is wheezing and short of breath, request for breathing treatments, MD to put in orders.
--- NOTE | 2019-04-20 17:41 | NUR ---
Spoke with [facility] Consuelo at [facility], she stated there is an accepting doctor at [facility] for the surgery - Dr. Ludin Perdomo - [facility] will fax the transfer back agreement which she said the Second Steward can sign - however the patient cannot sign consent for herself to be transferred - Consuelo will fax the agreement anyway in the meantime. Consuelo at [facility] - [phone]
[2019-04-20] MEDS ORDERED: LevALBUTEROL HCL 1.25 MG/0.5 ML *CONC.* VIAL.NEB (XOPENEX CONC.) INH PRN (18:00)
[2019-04-20 18:15] VITALS: BP_SYST 121
--- NOTE | 2019-04-20 18:25 | NUR ---
Closing note patient resting in bed, eyes closed, breathing is even and unlabored, no signs of distress, all needs met, will endorse report to NOC shift nurse, bed in lowest position, three side rails up, bed alarm on, bed close to nursing station, call light is within patient reach, fall and aspiration precautions in place.
[2019-04-20] MEDS: LevALBUTEROL HCL 1.25 MG/0.5 ML *CONC.* VIAL.NEB (XOPENEX CONC.) INH SCH (19:34)
[2019-04-20] MEDS: DONEPEZIL HCL 5 MG TABLET (ARICEPT) PO SCH (23:28)
[2019-04-20] MEDS: ENOXAPARIN SODIUM 30 MG/0.3 ML SYRINGE SUBCUT SCH (23:31)
[2019-04-20 23:34] VITALS: BP_SYST 140
[2019-04-21] MEDS: LevALBUTEROL HCL 1.25 MG/0.5 ML *CONC.* VIAL.NEB (XOPENEX CONC.) INH SCH ×4 (01:00→19:45)
[2019-04-21] MEDS: KCL 20 mEq in D5/0.45NS 1000mL 1,000 ML IV SCH ×2 (04:04→21:08)
[2019-04-21 08:00] VITALS: BP_SYST 129
--- NOTE | 2019-04-21 10:41 | NUR ---
DC Planning: s/w Consuelo at [facility] this am: the pt is accepted and has orthopedic/surgeon ready. The transfer is pending pt's agreement. Dr Ding made aware. He stated that the pt has history of dementia and unable to make decision for herself. He will document in progress note. He wants pt transfer to [facility] today. CM LVM to [facility] to process the transfer and admission. Addendum: 04/21/19 at 1156 by Pilo Andrea RN CM LVM to pt's brother/Ruben esparza this am, to spouse of RINA/Savita Guerrero # [phone]. No return call from both. CM called [facility], per LEEROY Stock and PETER Salvador dept stated the pt is in ICU and unable to talk due to medical condition. He would not be able to give any consent for pt/Nate. >> CM faxed the transfer back agreement to Consuelo@ [facility]. Dr Ding's progress note is to follow. Addendum: 04/21/19 at 1731 by Pilo Andrea RN late entry: 1500 received call back from [facility] her orthopedic surgeon/ declined accepting the pt. due lack POA or one can make medical decision for the pt.
[2019-04-21 11:16] VITALS: BP_SYST 142
[2019-04-21] MEDS: ATORVASTATIN 10 MG TABLET PO SCH (11:17)
[2019-04-21] MEDS: CALCIUM CARBONATE/VITAMIN D3 1 TAB TABLET PO SCH (11:17)
[2019-04-21] MEDS: CLOPIDOGREL BISULFATE 75 MG TABLET PO SCH (11:17)
[2019-04-21] MEDS: CARBIDOPA/LEVODOPA 25/100 MG TABLET PO SCH ×2 (11:18→20:56)
[2019-04-21] MEDS: amLODIPine BESYLATE 5 MG TABLET PO SCH (11:19)
[2019-04-21] MEDS: LEVOTHYROXINE SODIUM 0.1 MG TABLET PO SCH (11:19)
[2019-04-21] MEDS: DOCUSATE SODIUM 100 MG CAPSULE PO SCH ×2 (11:19→20:56)
[2019-04-21] MEDS: ASPIRIN 81 MG TAB.CHEW PO SCH (11:19)
[2019-04-21 15:41] VITALS: BP_SYST 130
--- NOTE | 2019-04-21 16:33 | NUR ---
DC Planning: late entry: Phoned RAMY back and requesting to reopen the case. (LEEROY and Valentín/RAMY cancelled the case this am since the plan was to send pt to [facility]) LEEROY faxed the repatriation form and the signed consent by pt and witnesses / leeroy Jones director and leeroy Daigle. >> CM please follow in am.
[2019-04-21 17:12] VITALS: BP_SYST 129
[2019-04-21] MEDS: HYDROcodone/ACETAMIN 10-325 MG TAB PO PRN (17:35)
--- NOTE | 2019-04-21 17:35 | NUR ---
Family contacts: Per Savita ( spouse of RINA Hemphill) Cesar is intubated and ICU at [facility]. Savita was able to text patient brother, RINA Miranda and found that he is in [place] and that was the reason he is not responding to my call. Savita gave me 2 other contact number: zen/Katiana # [phone], cm s/w with her . She stated she does not have good relationship with the patient for a long time and wishing not to be involved with the pt care or help making decision for the pt. and her sister Alice # [phone] who lives in [place] and does not to get involve as well. She advises not to call Alice as well. Please call Savita if needing further assistance in contacting with Ruben.
--- NOTE | 2019-04-21 19:30 | NUR ---
Opening notes Received report. Patient is resting in bed. No signs of distress noted. Breathing even and unlabored. IV patent and intact, infusing fluids. call light with the patient. Safety precautions in place.
[2019-04-21 20:00] VITALS: BP_SYST 142
[2019-04-21] MEDS: DONEPEZIL HCL 5 MG TABLET (ARICEPT) PO SCH (20:56)
[2019-04-21] MEDS: ENOXAPARIN SODIUM 30 MG/0.3 ML SYRINGE SUBCUT SCH (20:59)
--- NOTE | 2019-04-21 21:00 | NUR ---
Medications given. Educated the action and side effects of medications. Patient verbalized understanding and tolerated well. Patient provided with water. No other needs. Call light with the patient. Safety precautions in place.
[2019-04-21 23:38] VITALS: BP_SYST 139
[2019-04-22] VITALS (14 sets, daily range): BP systolic 119–145
--- NOTE | 2019-04-22 | NUR ---
Hygiene care done. Patient was in pain, but did not require pain medications. Patient had small, soft stool. No other needs. Call light with the patient. Safety precautions in place.
[2019-04-22] MEDS: LevALBUTEROL HCL 1.25 MG/0.5 ML *CONC.* VIAL.NEB (XOPENEX CONC.) INH SCH ×4 (00:27→20:26)
--- NOTE | 2019-04-22 02:00 | NUR ---
Resting Patient awake and resting in bed. No signs of distress noted. Breathing even and unlabored on 3 L NC. Call light with the patient. Safety precautions in place.
[2019-04-22] MEDS: KCL 20 mEq in D5/0.45NS 1000mL 1,000 ML IV SCH ×2 (02:55→18:29)
--- NOTE | 2019-04-22 04:30 | NUR ---
Sleeping No signs of distress noted. Breathing even and unlabored on 3 L NC. Call light with the patient. Safety precautions in place.
[2019-04-22] MEDS: LEVOTHYROXINE SODIUM 0.1 MG TABLET PO SCH (06:24)
--- NOTE | 2019-04-22 07:00 | NUR ---
Closing notes Patient resting in bed, no signs of distress noted. Breathing even and unlabored. IVF infusing well. All needs met throughout the shift. Call light with the patient. Safety precautions in place. Will endorse care to day shift RN.
--- NOTE | 2019-04-22 08:30 | NUR ---
B/P 136/72 P-98 R-16 T-98.7 O2 SAT-87-88%. SPOKE TO RT ABOUT SATS AND TRIED AT DIFFERENT POINTS, BUT REMAINED AT SAME NUMBER. INCREASED O2 TO 6L AND SAT INCREASED TO 89% ONLY. RT STATED SHE WAS NOT ABLE TO INCREASE IT AT THIS POINT EITHER.
[2019-04-22] MEDS: CALCIUM CARBONATE/VITAMIN D3 1 TAB TABLET PO SCH (09:20)
[2019-04-22] MEDS: CLOPIDOGREL BISULFATE 75 MG TABLET PO SCH (09:20)
[2019-04-22] MEDS: DOCUSATE SODIUM 100 MG CAPSULE PO SCH ×2 (09:20→21:00)
[2019-04-22] MEDS: ASPIRIN 81 MG TAB.CHEW PO SCH (09:21)
[2019-04-22] MEDS: amLODIPine BESYLATE 5 MG TABLET PO SCH (09:21)
[2019-04-22] MEDS: CARBIDOPA/LEVODOPA 25/100 MG TABLET PO SCH ×2 (09:21→21:00)
[2019-04-22] MEDS: ATORVASTATIN 10 MG TABLET PO SCH (09:21)
[2019-04-22] MEDS: HYDROcodone/ACETAMIN 10-325 MG TAB PO PRN (09:35)
--- NOTE | 2019-04-22 10:30 | NUR ---
RAPID RESPONSE CALLED DUE TO LOW O2 SATS . PT PLACED ON NRB AT 100% AND TRANSFERRED TO ICU. REPORT GIVEN TO DONALD LOERA , ICU AND VITAL SIGNS AT TIME OF TRANSFER WERE 138/78, P-104, R-16. O2 SAT-99% SEE REPORT OF RR IN CHART.
--- NOTE | 2019-04-22 10:34 | NUR ---
CONSULTATION PAGED REASON FOR CONSULTATION:SOB WAS CONSULT CALLED?Y PERSON WHO WAS NOTIFIED:RAJEEV CONSULTING PHYSICIAN:SYLVIE MCKEON DENTAL LAB TECHNICIAN SPECIALTY:PULMONARY DENTAL LAB TECHNICIAN PHONE NUMBER:[phone] REQUESTING PHYSICIAN:ANIYA GASTON
--- NOTE | 2019-04-22 10:45 | NUR ---
TRANSFER FROM [place] [facility] Transfer from [facility]. Patient is awake and alert, O2 on at 15L via facemask, SPO2 92%. Scope shows ST. Initial Vital sign checked and recorded. Patient repositioned for comfort. Will continue to monitor patient.
--- NOTE | 2019-04-22 11:01 | NUR ---
Case mgt: Reviewed case for f/u for transfer to either [facility] or [facility] for orthopedic intervention--upon reviewing case mgt/social service notes, the only family contact available/willing to be involved is pt's brother Ruben, who is in [facility] and can be reached through Savita (spouse of RINA Mercado who is intubated at another hospital)--Savita's ph#[phone] or Ruben [phone]---Pt has now been transferred to ICU per nursing staff--JARRELL RN
--- NOTE | 2019-04-22 11:30 | NUR ---
MD ROUNDS Dr. Persaud here to see patient, with orders carried out.
--- NOTE | 2019-04-22 11:35 | NUR ---
RT NOTES Per Dr Persaud, try pt on 50% ventimask. saturation 92%. will monitor pt.
[2019-04-22] MEDS ORDERED: FUROSEMIDE 20 MG/2 ML VIAL IVP ONE (11:45)
--- NOTE | 2019-04-22 12:00 | NUR ---
Lapses of confusion noted. Patient was reoriented to her sorroundings. Emotional reassurance provided.
[2019-04-22 12:07] LABS: HEMATOCRIT 22.2 % (36-48); MEAN CORPUSCULAR HEMOGLOBIN 31 pg (27-31); MEAN CORPUSCULAR HGB CONC 34 % (32-36); MEAN CORPUSCULAR VOLUME 91 fL (79.0-98.0); PLATELET COUNT (AUTO) 196 K/uL (130-430); RED BLOOD CELL COUNT(AUTO) 2.44 MIL/uL (4.2-6.2); RED CELL DISTRIBUTION WIDTH 14.7 % (9.0-15.0); WHITE BLOOD COUNT (AUTO) 7.6 K/uL (4.8-10.8)
[2019-04-22 12:12] LABS: HEMOGLOBIN 7.4 g/dL (12.0-16.0)
[2019-04-22 12:15] LABS: ALANINE AMINOTRANSFERASE 37 U/L (12-78); ALBUMIN 1.8 g/dL (3.4-4.8); ANION GAP 9 (5-15); ASPARTATE AMINOTRANSFERASE 111 U/L (10-37); CALCIUM 7.3 mg/dL (8.4-11.0); CHLORIDE 100 mmol/L (98-107); CREATININE 1.96 mg/dL (0.55-1.30); GLUCOSE 190 mg/dL (70-99); POTASSIUM 5.1 mmol/L (3.5-5.1); SODIUM SERUM 129 mmol/L (136-145); UREA NITROGEN, BLOOD 36 mg/dL (8-21)
[2019-04-22] MEDS: PIPERACILLIN/TAZO 2.25G/DEX-IS 50 ML IV SCH ×2 (12:51→18:28)
--- NOTE | 2019-04-22 13:00 | NUR ---
Venous Doppler, Bilateral LE in progress.
[2019-04-22 13:40] LABS: ATYPICAL LYMPHOCYTES % 0 % (0-0); BAND % (MANUAL) 42 % (0-6); BASOPHILS % (MANUAL) 0 % (0-2); EOSINOPHILS % (MANUAL) 0 % (0-7); LYMPHOCYTES % (MANUAL) 5 % (20-46); MONOCYTES % (MANUAL) 2 % (0-11)
--- NOTE | 2019-04-22 15:30 | NUR ---
Dozing at this time. Appears comfortable.
--- NOTE | 2019-04-22 18:00 | NUR ---
PM care done, repositioned for comfort.
--- NOTE | 2019-04-22 18:30 | NUR ---
MD ROUNDS PATIENT SEEN AND EXAMINED BY DR. BROCK.
--- NOTE | 2019-04-22 19:25 | NUR ---
Opening Note Received patient report from endorsing RN via SBAR communication
--- NOTE | 2019-04-22 20:00 | NUR ---
Nursing Note Patient lying in bed with eyes closed, on oxymizer at 10L with O2 saturation at 98%. Attempted to administer medications but patient refused. Education provided regarding medications, indications, and side effects. Patient still refused medication administration and stated, "leave me alone please."
[2019-04-22] MEDS: ENOXAPARIN SODIUM 30 MG/0.3 ML SYRINGE SUBCUT SCH (21:00)
[2019-04-22] MEDS: DONEPEZIL HCL 5 MG TABLET (ARICEPT) PO SCH (21:00)
--- NOTE | 2019-04-22 21:15 | NUR ---
Nursing Note Patient suctioned and provided water/blankets as requested. Patient educated about medication indications, patient refused medication and stated, "I don't want to take any medications, I want to go home."
[2019-04-23] VITALS (23 sets, daily range): BP systolic 105–155
[2019-04-23] MEDS: PIPERACILLIN/TAZO 2.25G/DEX-IS 50 ML IV SCH ×4 (00:31→17:20)
--- NOTE | 2019-04-23 01:00 | NUR ---
Nursing Note Patient lying in bed with eyes closed, O2 saturation 98% on Oxymizer 10L. Patient has a productive cough and was suctioned, small amount of yellow sputum. Patient was repositioned and pulled up in bed.
[2019-04-23] MEDS: LevALBUTEROL HCL 1.25 MG/0.5 ML *CONC.* VIAL.NEB (XOPENEX CONC.) INH SCH ×4 (01:49→20:33)
--- NOTE | 2019-04-23 04:30 | NUR ---
Nursing Note Patient had small bowel movement, patient cleaned, linens changed, repositioned.
[2019-04-23] MEDS: HYDROcodone/ACETAMIN 10-325 MG TAB PO PRN ×2 (05:18→18:28)
[2019-04-23 05:57] LABS: LYMPHOCYTES # (AUTO) 0.5 K/uL (1.0-5.5); MONOCYTES # (AUTO) 0.3 K/uL (0.0-1.0); RED BLOOD CELL COUNT(AUTO) 2.26 MIL/uL (4.2-6.2)
[2019-04-23] MEDS: LEVOTHYROXINE SODIUM 0.1 MG TABLET PO SCH (06:00)
[2019-04-23 06:23] LABS: BASOPHILS % (AUTO) 0.3 % (0.0-2.0); EOSINOPHILS # (AUTO) 0.1 K/uL (0.0-0.4); EOSINOPHILS % (AUTO) 0.6 % (0.0-4.0); LYMPHOCYTES % (AUTO) 4.4 % (20.5-51.5); MEAN CORPUSCULAR HEMOGLOBIN 31 pg (27-31); MEAN CORPUSCULAR HGB CONC 34 % (32-36); MEAN CORPUSCULAR VOLUME 91 fL (79.0-98.0); MONOCYTES % (AUTO) 3.3 % (1.7-9.3); NEUTROPHILS # (AUTO) 9.5 K/uL (1.8-7.7); NEUTROPHILS % (AUTO) 91.4 % (40.0-70.0); PLATELET COUNT (AUTO) 190 K/uL (130-430); RED CELL DISTRIBUTION WIDTH 14.6 % (9.0-15.0)
[2019-04-23 06:26] LABS: ALANINE AMINOTRANSFERASE 50 U/L (12-78); ALBUMIN 1.7 g/dL (3.4-4.8); ANION GAP 11 (5-15); ASPARTATE AMINOTRANSFERASE 88 U/L (10-37); CALCIUM 7.2 mg/dL (8.4-11.0); CHLORIDE 100 mmol/L (98-107); CREATININE 1.93 mg/dL (0.55-1.30); GLUCOSE 136 mg/dL (70-99); POTASSIUM 4.5 mmol/L (3.5-5.1); SODIUM SERUM 132 mmol/L (136-145); UREA NITROGEN, BLOOD 34 mg/dL (8-21)
[2019-04-23 06:42] LABS: HEMATOCRIT 20.6 % (36-48); WHITE BLOOD COUNT (AUTO) 10.4 K/uL (4.8-10.8)
--- NOTE | 2019-04-23 07:10 | NUR ---
Received shift report from night RN using SBAR.
--- NOTE | 2019-04-23 07:10 | NUR ---
Closing Note Patient report given via SBAR communication to medardo ZARAGOZA
--- NOTE | 2019-04-23 07:30 | NUR ---
Applied Allergy band on PT for iodine.
--- NOTE | 2019-04-23 08:00 | NUR ---
AM Assessment Pt alert and awake. Able to confirm she has a broken hip but unable to state which side is affected. Pt complains of pain but unable to state what pain level. Pt also refused pain medication but stated she will let me know when she needs it. Pt complains of not being able to sleep and that she has insomnia. Bilateral upper and lower pulses detected. SR on monitor of 95. No other complains of discomfort. Bed locked and in lowest position. Will continue to monitor for pain and reassess. Bed locked and in lowest position with call light in place in right hand.
[2019-04-23] MEDS: amLODIPine BESYLATE 5 MG TABLET PO SCH (08:15)
[2019-04-23] MEDS: CARBIDOPA/LEVODOPA 25/100 MG TABLET PO SCH ×2 (08:15→21:12)
[2019-04-23] MEDS: ATORVASTATIN 10 MG TABLET PO SCH (08:15)
[2019-04-23] MEDS: ASPIRIN 81 MG TAB.CHEW PO SCH (08:15)
[2019-04-23] MEDS: DOCUSATE SODIUM 100 MG CAPSULE PO SCH ×2 (08:15→21:12)
[2019-04-23] MEDS: CLOPIDOGREL BISULFATE 75 MG TABLET PO SCH (08:16)
[2019-04-23] MEDS: KCL 20 mEq in D5/0.45NS 1000mL 1,000 ML IV SCH (08:20)
--- NOTE | 2019-04-23 09:00 | NUR ---
MD ROUNDS Dr Persaud Bedside. Orders received.
[2019-04-23] MEDS ORDERED: FUROSEMIDE 20 MG/2 ML VIAL IVP ONE (09:15)
--- NOTE | 2019-04-23 09:15 | NUR ---
Lasix administration Per Dr Persaud administer Lasix post blood transfusion.
[2019-04-23] MEDS: CALCIUM CARBONATE/VITAMIN D3 1 TAB TABLET PO SCH (09:35)
--- NOTE | 2019-04-23 10:17 | NUR ---
DC PLANNING Called Savita, ph [phone], states her is RINA but is @ [facility] & still not capable of making decision. They are family friends not family. [facility] was able to contact pt's brother Ruben via text & he was able to give her a different family member contact information. States she will get the family member name & number & call me back w information. Addendum: 04/23/19 at 1127 by Tianna Arboleda RN Received call back from Savita bella same name & ph that had already been given to other CM before & did not want to get involved, dtr Venita [phone] & brother Juan Diego Gonzalez [phone]. Per Savita her , pt's RINA Mercado was extubated yest & could probably give consent today. I received call from RINA Mercado's nurse Isabella @ [facility], ph [phone] room 288, that pt was Alert & Oriented today w GLOS a lucid 15. Transferred call to Cesar Mercado. I spoke & discussed reason for need for transfer to Higher Level of Care, Cesar was already aware & is agreeable to transfer to higher loc to anywhere that accepts pt & states is agreeable w surgery. Updated ICU charge nurse Reva.
--- NOTE | 2019-04-23 10:20 | NUR ---
Consent for Blood Transfusion Faxed over consent to DR Persaud's office for blood transfusion.
[2019-04-23 10:58] LABS: BILIRUBIN,URINE NEGATIVE (NEGATIVE); BLOOD, URINE 2+ (NEGATIVE); CLARITY/URINE CLEAR (CLEAR); COLOR,URINE YELLOW (YELLOW); GLUCOSE,URINE NEGATIVE (NEGATIVE); KETONES,URINE NEGATIVE (NEGATIVE); LEUKOCYTE ESTERASE ,URINE NEGATIVE (NEGATIVE); NITRITE, URINE NEGATIVE (NEGATIVE); PH,URINE 5.5 (5.0-8.0); PROTEIN URINE 3+ (NEGATIVE)
[2019-04-23 11:37] LABS: BACTERIA,URINE MODERATE /HPF (None Seen); URINE AMORPHOUS URATE 1+ /HPF (None Seen)
[2019-04-23 11:45] LABS: MUCUS,URINE 1+ /LPF (None Seen)
--- NOTE | 2019-04-23 11:47 | NUR ---
CHG BATH given. Pt had 1 BM. Changed linens, gown, provided perineal and perianal care. Pt tolerated well with minimal complaint of pain when turning. Bed locked and in lowest position with call light in place. Will continue to monitor for pain.
--- NOTE | 2019-04-23 11:50 | NUR ---
Consent For Blood Tranfusion Received consent for blood transfusion from Dr Persaud via Fax.
--- NOTE | 2019-04-23 12:05 | NUR ---
DC PLANNING Called & spoke w Irene @ [facility], updated was able to contact POA Cesar Jess & consented over the ph to transfer to [facility] & for surgery. States will have to send to her surgeon again, faxed pt info including POA paperwork to Irene. [facility] ph [phone] fax [phone]. Irene also aware that Timvenus Hintono is currently pt at [facility], gave ph [phone] room 288. Addendum: 04/23/19 at 1634 by Tianna Arboleda RN Received msg from Ruben Dickey Pt POA, he states he is out of [place] that is in [place] [facility] [place], can be reached @ [phone]. Tried to call # but not going thru, tried calling from Directors office as well as varnishing unit operator & not going through. CM Director Karen aware.
--- NOTE | 2019-04-23 14:19 | NUR ---
Nutrition F/U RD reviewed pt's current EMR record including diet Hx, physician notes, nursing notes, pertinent labs/meds/procedures, care trends, and care activity. Admission Dx: Acetabulum fracture Pt also found w/ malnutrition per physician notes PMH: HTN, Parkinson's Dz, hypothyroidism, osteoporosis, dementia per physician notes Current Diet Order/Nutrition Support: Regular, Ensure High Protein TID x0 days -- Ensure Enlive TID used as substitute as Ensure High Protein is not currently available Subjective Info: Pt was seen during lunch meal w/ RN at bedside helping to assemble pt's meal tray. Pt was drinking Ensure and reported that she loves it very much -- prefers any flavor. RD encouraged pt to increase PO intakes for adequate nutrition. Per RN, pt ate 50% of breakfast, and plans for 1 unit of PRBC infusion. RN also stated that pt's skin is intact, no issues. Bedscale wt taken: 128#. Current % PO 48% average x10 meals, x2 refusals per EMR Estimated Energy Expenditure (kcals/day) 9176-7628 kcal/day (25-30 kcal/kg CBW for geriatric maintenance) Estimated Protein Required (g/day) 59-71 gm/day (1-1.2 gm/kg CBW for geriatric maintenance) Estimated Fluid Required (l/day) 1.5-1.8 L/day (1 ml/kcal/day for maintenance) Nutritional Problem Suboptimal nutritional intakes related to possible lack of appetite as evidenced by poor PO intake records. *new Expected Outcomes/Goals - Monitor appetite and PO intakes w/ goal of pt meeting at least 75% of estimated nutritional needs, labs trending WNL, normal GI function, and skin integrity/wt maintenance Dietitian Recommendations * Recommend regular diet w/ Ensure Enlive TID (ONS provides 1050 kcal/day, 60 gm protein/day) Follow Up Mod Risk: F/U in 3-5 days
--- NOTE | 2019-04-23 14:28 | NUR ---
Dietitian Recommendations * Recommend regular diet w/ Ensure Enlive TID (ONS provides 1050 kcal/day, 60 gm protein/day) LP, RD Please refer to Nutrition F/U for details.
--- NOTE | 2019-04-23 14:50 | NUR ---
BT INITIATION: Consent signed per Cesar Mercado agreeing to administration of blood. Blood has been type and crossmatched. Blood sent from blood bank. Information on unit of blood checked against patient wristband at bedside by two nurses. All information matches. Patient or responsible democrat informed of potential complications associated with blood transfusion. Informed of possible transfusion reaction symptoms. Aware of need to notify nurse at once of itching, shortness of breath, flushing, feeling of impending doom, or other symptoms not previously present. Vital signs taken within 5 minutes prior to initiation of transfusion. Blood Transfusion of 300cc initiated at 65cc/hr. Temp 98.2F, pulse 98, RR 29, 127/71 BP. Patient tolerated well first 15 minutes with no adverse reactions. Titrated to 125cc/hr. Vitals at 1505 98.3F, pulse 92, RR 31, 112/55 BP. Will continue to monitor.
--- NOTE | 2019-04-23 17:30 | NUR ---
BT completed @ 1730 with no adverse reactions. Final vitals, 97.7F, 92 HR, 33 RR, 132/70 BP. Will administer Lasix 20 mg per MD order. Will continue to monitor vital hemodynamic status.
--- NOTE | 2019-04-23 19:05 | NUR ---
Endorsement/Closing notes Provided shift report to night RN using SBAR. Pt resting with no signs of distress and mild pain of 5/10. A/O x 2. No adverse reactions to blood transfusion. Bed locked and in lowest position with call light in place.
--- NOTE | 2019-04-23 20:00 | NUR ---
AWAKE, ALERT, ORIENTED X3. IN NO APPARENT DISTRESS. STATES HER LEFT HIP HURTS ON MOVEMENT. ON O2 AT 3L/MIN/NC. BREATH SOUNDS ESSENTIALLY CLEAR. BOWEL SOUNDS (+). PULSES PALPABLE. SKIN W/D. COLOR SATISFACTORY. HOB UP TO COMFORT. SIDE RAILS UP . CALL LIGHTS WITHIN REACH. LEWIS CATH PATENT DRAINING CLEAR YELLOW URINE TO GRAVITY. SR. STILL NIBBLING ON HER DINNER.
[2019-04-23] MEDS: DONEPEZIL HCL 5 MG TABLET (ARICEPT) PO SCH (21:12)
[2019-04-23] MEDS: ENOXAPARIN SODIUM 30 MG/0.3 ML SYRINGE SUBCUT SCH (21:13)
--- NOTE | 2019-04-23 22:00 | NUR ---
DR HESSIUM HERE EARLIER, UPDATED ON PT STATUS. NEW ORDERS GIVEN TO BE IMPLEMENTED. PT DOZING OFF AND ON.
[2019-04-24] VITALS (16 sets, daily range): BP systolic 114–145
--- NOTE | 2019-04-24 | NUR ---
RESTING QUIETLY. NO DISTRESS NOTED. VSS.
[2019-04-24] MEDS: PIPERACILLIN/TAZO 2.25G/DEX-IS 50 ML IV SCH ×5 (00:12→23:32)
[2019-04-24] MEDS: HYDROcodone/ACETAMIN 10-325 MG TAB PO PRN ×2 (01:58→08:38)
[2019-04-24] MEDS: LevALBUTEROL HCL 1.25 MG/0.5 ML *CONC.* VIAL.NEB (XOPENEX CONC.) INH SCH ×4 (01:58→20:30)
--- NOTE | 2019-04-24 02:00 | NUR ---
NORCO 10-325MG PO GIVEN FOR LEFT HIP PAIN AND SOME SEDATION .
--- NOTE | 2019-04-24 02:39 | NUR ---
CONSULTATION PAGED/CALLED Reason for Consultation: CHF Person Who was Notified: CECILIA Consulting Physician: MADAN Mat Packer Specialty: CARDIO Ordering Physician:
--- NOTE | 2019-04-24 04:00 | NUR ---
AWAKE. TURNED. VSS.
[2019-04-24] MEDS: KCL 20 mEq in D5/0.45NS 1000mL 1,000 ML IV SCH ×2 (05:46→23:32)
[2019-04-24] MEDS ORDERED: ALENDRONATE SODIUM 70 MG TABLET (FOSAMAX) PO SCH (06:00)
--- NOTE | 2019-04-24 06:00 | NUR ---
HAS ABDOMINAL DISCOMFORT. DENTURES CLEANED. FED SOME PEACHES. AM CARE RENDERED. FACE , NECK AND HANDS WIPED WITH SKIN PROTECTANT WIPES. OCCASIONAL PRODUCTIVE COUGH NOTED. THIN WHITE MUCUS EXPECTORATED. SUCTIONED BUCCAL CAVITY. UO GOOD. REMAINS IN GUARDED CONDITION.
[2019-04-24] MEDS: LEVOTHYROXINE SODIUM 0.1 MG TABLET PO SCH (06:41)
[2019-04-24 06:42] LABS: BASOPHILS % (AUTO) 0.1 % (0.0-2.0); EOSINOPHILS # (AUTO) 0.1 K/uL (0.0-0.4); EOSINOPHILS % (AUTO) 0.4 % (0.0-4.0); HEMOGLOBIN 8.1 g/dL (12.0-16.0); LYMPHOCYTES % (AUTO) 5.4 % (20.5-51.5); MEAN CORPUSCULAR HEMOGLOBIN 31 pg (27-31); MEAN CORPUSCULAR HGB CONC 34 % (32-36); MEAN CORPUSCULAR VOLUME 91 fL (79.0-98.0); MONOCYTES # (AUTO) 0.5 K/uL (0.0-1.0); NEUTROPHILS # (AUTO) 16.5 K/uL (1.8-7.7); NEUTROPHILS % (AUTO) 91.1 % (40.0-70.0); PLATELET COUNT (AUTO) 211 K/uL (130-430); RED BLOOD CELL COUNT(AUTO) 2.65 MIL/uL (4.2-6.2); RED CELL DISTRIBUTION WIDTH 15.1 % (9.0-15.0); WHITE BLOOD COUNT (AUTO) 18.1 K/uL (4.8-10.8)
[2019-04-24 07:01] LABS: ALBUMIN 1.6 g/dL (3.4-4.8); ANION GAP 9 (5-15); ASPARTATE AMINOTRANSFERASE 121 U/L (10-37); CALCIUM 7.5 mg/dL (8.4-11.0); CHLORIDE 101 mmol/L (98-107); CREATININE 1.91 mg/dL (0.55-1.30); GLUCOSE 128 mg/dL (70-99); POTASSIUM 4.2 mmol/L (3.5-5.1); SODIUM SERUM 133 mmol/L (136-145); TOTAL BILIRUBIN 1.4 mg/dL (0.0-1.0); UREA NITROGEN, BLOOD 41 mg/dL (8-21)
--- NOTE | 2019-04-24 07:10 | NUR ---
Received shift report from night RN using SBAR.
[2019-04-24 07:17] LABS: ALANINE AMINOTRANSFERASE 23 U/L (12-78)
--- NOTE | 2019-04-24 07:30 | NUR ---
AM ASSESSMENT PT IN GUARDED POSITION AND COMPLAINS OF INSOMNIA AND RIGHT HIP PAIN. WILL ADMINISTER PRN PAIN MEDICATION. PT SR ON MONITOR AND EXHIBITS SIGNS OF PRODUCTIVE COUGH. AUSCULTATION OF LUNGS INDICATE CRACKLES. WILL CONTINUE TO MONITOR.
--- NOTE | 2019-04-24 08:30 | NUR ---
CHG BATH Pt had BM, cleaned perianal and perineal are around [place]. Provided facial cleaning and partial bed bath. Noted tangled hair posterior head. Tried to de-tangle but hair is matted. Will try again later. Provided CHG bath, changed linens, gown, and supported chucks. Pt tolerated well.
--- NOTE | 2019-04-24 08:32 | NUR ---
DC Planning: Phoned Corinna s/jena Blevnis requesting f/u with the transfer and made aware that the pt needs and urgent surgery. Per Felicity the case is being review by dr. Gardner. She will call back once there is decision. -- CM will f/u. Addendum: 04/24/19 at 1348 by Pilo Andrea RN >> Late entry: communication with Cathy: the pt is accepted by dr. Gardner. Tele bed request per dr. Ding order. CM faxed the transfer agreement form signed by CEO Yamini and the transfer order by dr. Ding.--CM to f/u
[2019-04-24] MEDS: CALCIUM CARBONATE/VITAMIN D3 1 TAB TABLET PO SCH (08:37)
[2019-04-24] MEDS: CLOPIDOGREL BISULFATE 75 MG TABLET PO SCH (08:38)
[2019-04-24] MEDS: CARBIDOPA/LEVODOPA 25/100 MG TABLET PO SCH ×2 (08:38→19:59)
[2019-04-24] MEDS: ATORVASTATIN 10 MG TABLET PO SCH (08:38)
[2019-04-24] MEDS: DOCUSATE SODIUM 100 MG CAPSULE PO SCH ×2 (08:38→19:59)
[2019-04-24] MEDS: amLODIPine BESYLATE 5 MG TABLET PO SCH (08:39)
[2019-04-24] MEDS: ASPIRIN 81 MG TAB.CHEW PO SCH (08:39)
--- NOTE | 2019-04-24 10:30 | NUR ---
Changed [place] bag due to compromise. Changed anchor point from left leg to right leg. Noted 400cc of clear yellow urine in previous [place] bag.
--- NOTE | 2019-04-24 12:30 | NUR ---
NURSING NOTE PT STATED SHE HAS DECREASED APPETITE BUT IS ABLE TO DRINK ENSURE. PT STATED SHE LIKES ENSURE. PT ALSO EXPRESSED DESIRE TO SLEEP. WILL PROVIDE NOISE FREE ENVIRONMENT AND ORDER MORE ENSURE FOR PT TO CONSUME.
--- NOTE | 2019-04-24 13:15 | NUR ---
Orders Dr Ding called for TO orders to downgrade Pt to TELEMETRY.
--- NOTE | 2019-04-24 14:00 | NUR ---
MD ROUNDS DR BROCK BEDSIDE. ORDERS RECEIVED.
--- NOTE | 2019-04-24 14:05 | NUR ---
PT IS NOW ON TELEMETRY STATUS. WILL NOTE IN INTERVENTIONS.
--- NOTE | 2019-04-24 18:00 | NUR ---
Nursing Note Called Cesar Mercado (DPOA) to inform him that Pt is being downgraded to Tele and transfer to [facility] has been approved.
--- NOTE | 2019-04-24 18:30 | NUR ---
DOWNGRADE TO TELEMETRY TRANSFERRED PT TO ROOM 112T-A ON 3L O2 WITH NO INCIDENCE. PROVIDED SHIFT REPORT TO DAY RN USING SBAR.
--- NOTE | 2019-04-24 18:57 | NUR ---
ICU transfer: Receieved from ICU. Patient is alert and oriented. IV fluid of D5 1/2 NS + 20kcl at 60cc/hr on the right forearm gauge 22. With oxygen 2 li/min via nasal cannula. Oriented to room.
--- NOTE | 2019-04-24 19:15 | NUR ---
OPENING NOTES Late entry due to patient care. Bedside report received from dayshift nurse. Patient received lying in bed, awake, No s/s of acute distress noted. Patient denies pain, states she feels ok. Breathing even and unlabored, HOB raised, nasal cannula attached properly, on 2L of oxygen. IVF infusing well, IV site patient, no signs of infiltration or infection noted. [place] attached, secured and draining by gravity. Call light with patient. Bed alarm on. Will continue to monitor.
[2019-04-24] MEDS: ENOXAPARIN SODIUM 30 MG/0.3 ML SYRINGE SUBCUT SCH (19:59)
[2019-04-24] MEDS: DONEPEZIL HCL 5 MG TABLET (ARICEPT) PO SCH (19:59)
--- NOTE | 2019-04-24 21:00 | NUR ---
ROUNDS Patient in bed, awake, watching TV. No signs of discomfort noted. Chest rise and fall even bilaterally. IVF infusing well. Call light with patient. Bed alarm on. Will continue to monitor.
--- NOTE | 2019-04-24 23:30 | NUR ---
ZOSYN/IV BAG Zosyn hung at this time, and new IV bag. IVF infusing well. All needs met. Bed alarm on. Will continue to monitor.
[2019-04-25] VITALS: BP_SYST 122
[2019-04-25] MEDS: LevALBUTEROL HCL 1.25 MG/0.5 ML *CONC.* VIAL.NEB (XOPENEX CONC.) INH SCH ×3 (00:03→14:09)
--- NOTE | 2019-04-25 01:30 | NUR ---
ROUNDS Patient requested to be repositioned, done by RN. Patient states that she feels comfortable after repositioning. All needs met. Bed alarm on. Will continue to monitor.
--- NOTE | 2019-04-25 03:30 | NUR ---
ROUNDS Patient in bed sleeping at this time. No s/s of acute distress noted. Breathing even and unlabored. IVF infusing well. [place] attached, secured, and draining by gravity. Call light with patient. Bed alarm on. Will continue to monitor.
--- NOTE | 2019-04-25 05:00 | NUR ---
ROUNDS Patient in bed sleeping. No signs of discomfort noted. Chest rise and fall even bilaterally. Call light with patient. Bed alarm on. Will continue to monitor.
[2019-04-25] MEDS: PIPERACILLIN/TAZO 2.25G/DEX-IS 50 ML IV SCH ×2 (05:54→13:11)
[2019-04-25] MEDS: LEVOTHYROXINE SODIUM 0.1 MG TABLET PO SCH (05:54)
--- NOTE | 2019-04-25 06:45 | NUR ---
CLOSING NOTES Patient in bed asleep at this time. No s/s of acute distress noted. Breathing even and unlabored, HOB raised, nasal canula attached properly, on 2L of oxygen. IVF infusing well, IV site patent, no signs of infiltration or infection noted. [place] attached, secure, and draining by gravity. All needs met throughout shift. Fall and safety precautions maintained throughout shift. Will continue to monitor until patient care is endorsed to oncoming dayshift nurse.
[2019-04-25 07:53] LABS: BASOPHILS % (AUTO) 0.2 % (0.0-2.0); EOSINOPHILS # (AUTO) 0.1 K/uL (0.0-0.4); EOSINOPHILS % (AUTO) 0.5 % (0.0-4.0); HEMATOCRIT 23.3 % (36-48); HEMOGLOBIN 7.9 g/dL (12.0-16.0); LYMPHOCYTES # (AUTO) 0.8 K/uL (1.0-5.5); LYMPHOCYTES % (AUTO) 4.6 % (20.5-51.5); MEAN CORPUSCULAR HEMOGLOBIN 31 pg (27-31); MEAN CORPUSCULAR HGB CONC 34 % (32-36); MEAN CORPUSCULAR VOLUME 90 fL (79.0-98.0); MONOCYTES # (AUTO) 0.6 K/uL (0.0-1.0); MONOCYTES % (AUTO) 3.4 % (1.7-9.3); NEUTROPHILS # (AUTO) 15.9 K/uL (1.8-7.7); NEUTROPHILS % (AUTO) 91.3 % (40.0-70.0); PLATELET COUNT (AUTO) 210 K/uL (130-430); RED BLOOD CELL COUNT(AUTO) 2.59 MIL/uL (4.2-6.2); WHITE BLOOD COUNT (AUTO) 17.5 K/uL (4.8-10.8)
[2019-04-25 08:00] VITALS: BP_SYST 111
--- NOTE | 2019-04-25 08:00 | NUR ---
A/OX1. C/O PAIN IN THE LEFT HIP. WILL ADMINISTER PRN PAIN MEDICATION. PT SR ON MONITOR. ON 2L NC, SATTING 94%. AUSCULTATION OF LUNGS RHONCHI. WILL CONTINUE TO MONITOR.
[2019-04-25 08:08] LABS: ALANINE AMINOTRANSFERASE 20 U/L (12-78); ALBUMIN 1.5 g/dL (3.4-4.8); ANION GAP 9 (5-15); CALCIUM 7.4 mg/dL (8.4-11.0); CHLORIDE 102 mmol/L (98-107); CREATININE 1.82 mg/dL (0.55-1.30); GLUCOSE 123 mg/dL (70-99); POTASSIUM 4.4 mmol/L (3.5-5.1); SODIUM SERUM 133 mmol/L (136-145); UREA NITROGEN, BLOOD 39 mg/dL (8-21)
[2019-04-25] MEDS: CLOPIDOGREL BISULFATE 75 MG TABLET PO SCH (08:32)
[2019-04-25] MEDS: CARBIDOPA/LEVODOPA 25/100 MG TABLET PO SCH (08:32)
[2019-04-25] MEDS: ATORVASTATIN 10 MG TABLET PO SCH (08:32)
[2019-04-25] MEDS: DOCUSATE SODIUM 100 MG CAPSULE PO SCH (08:32)
[2019-04-25] MEDS: CALCIUM CARBONATE/VITAMIN D3 1 TAB TABLET PO SCH (08:33)
[2019-04-25] MEDS: ASPIRIN 81 MG TAB.CHEW PO SCH (08:33)
[2019-04-25] MEDS: amLODIPine BESYLATE 5 MG TABLET PO SCH (08:34)
[2019-04-25 08:40] LABS: ASPARTATE AMINOTRANSFERASE 57 U/L (10-37)
[2019-04-25] MEDS: HYDROcodone/ACETAMIN 10-325 MG TAB PO PRN (08:40)
--- NOTE | 2019-04-25 10:00 | NUR ---
PATIENT IS TURNED AND REPOSITIONED FOR COMFORT.
--- NOTE | 2019-04-25 12:14 | NUR ---
DC Planning: [facility] f/u: Per Sofya@ transfer ctr " expecting to have bed for the pt today." cm to f/u in pm.
[2019-04-25 12:24] VITALS: BP_SYST 126
--- NOTE | 2019-04-25 13:04 | NUR ---
DC Planning: [facility] bed assignment received: per Lalo, the pt is going to nursing [address], Room 8308, RN to report # [phone], address: [address] [place] [id number]. Bed is available now. The admission time is no later than 3 pm. If expecting late arrival nursing should notify [facility] nursing unit. -- Isable, US will be assisting to arrange the ambulance transfer and to notify RN on duty. Thank you.
[2019-04-25 13:28] VITALS: BP_SYST 111
--- NOTE | 2019-04-25 13:43 | NUR ---
ARRANGED WITH [facility], ALS ( HAIR OR BE[facility]Y [facility] ASSISTANT) TO TAKE PT TO [facility] [address] [facility] [address], [address] RM 8308. CAN SORTER TIME IS 1430. SPOKE TO CHANTELLE.
--- NOTE | 2019-04-25 13:48 | NUR ---
[facility] CALLED TO INFORM THAT PT WILL BE ARRIVING AFTER 1500. SPOKE TO MILA MANCILLA.
--- NOTE | 2019-04-25 14:50 | NUR ---
PT TRANSFERRED Report given to LAURENT at [facility]. Transfer packet with Transfer Orders and Medication Reconciliation form given to EMT with report. Exitcare provided. [facility] ID band removed, replaced with ID band with pt's name and . IV catheter kept. All belongings sent with patient. Patient left floor via gurney escorted by EMT in no distress.
== END 2019-04-25 14:50 | disposition short-term general hospital (02) | DRG 542 ==
LOC: SED 13:36 → SMU 15:33 → SIC 04-22 11:25 → STU 04-24 18:53
PROVIDERS: ADMIT Family Medicine; ATTEND Family Medicine
PROC: 30233N1 Transfusion of Nonautologous Red Blood Cells into Peripheral Vein, Percutaneous Approach (ICD-10-PCS; principal; 2019-04-23)
DX: M80.052A Age-related osteoporosis with current pathological fracture, left femur, initial encounter for fracture (principal); J96.01 Acute respiratory failure with hypoxia; J69.0 Pneumonitis due to inhalation of food and vomit; E43 Unspecified severe protein-calorie malnutrition; N17.9 Acute kidney failure, unspecified; I13.0 Hypertensive heart and chronic kidney disease with heart failure and stage 1 through stage 4 chronic kidney disease, or unspecified chronic kidney disease; N18.4 Chronic kidney disease, stage 4 (severe); D64.9 Anemia, unspecified; E03.9 Hypothyroidism, unspecified; G20 Parkinson's disease; F02.80 Dementia in other diseases classified elsewhere, unspecified severity, without behavioral disturbance, psychotic disturbance, mood disturbance, and anxiety; F31.9 Bipolar disorder, unspecified; I50.9 Heart failure, unspecified; I25.10 Atherosclerotic heart disease of native coronary artery without angina pectoris; F20.9 Schizophrenia, unspecified; N28.1 Cyst of kidney, acquired; X58.XXXA Exposure to other specified factors, initial encounter; Y93.89 Activity, other specified; Y92.89 Other specified places as the place of occurrence of the external cause; Y99.8 Other external cause status; Z68.23 Body mass index [BMI] 23.0-23.9, adult; Z91.041 Radiographic dye allergy status; Z79.899 Other long term (current) drug therapy; Z79.82 Long term (current) use of aspirin
CPT/HCPCS: 36415; 36600; 71045; 72192-TC; 80048; 80053; 81000-TC; 82803-TC; 82962; 83735-TC; 83880; 85007; 85025; 85027; 85379; 85610-TC; 85730-TC; 86870; 86886; 86900; 86901; 86905; 86920; 87040-TC; 87081; 87086; 93970; 94640; 94760; 96374; 96375; 99285; G0378; J1650; J1940; J2270; J2405; J2543; J7040; J7612; P9021